=== PATIENT | female | born 2005 | race Caucasian/White ===

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

== ENCOUNTER 2023-05-28 18:06 | Emergency (ER) | payer BC, SELFPAY ==
--- NOTE | ~2023-05-28 | CT_ITS ---
EXAMINATION: CT abdomen pelvis w con INDICATION: Right upper quadrant pain TECHNIQUE: Computed tomographic images of the abdomen and pelvis were obtained after the administrati on of 100 cc of Omnipaque 350 intravenous contrast. The dose-length product (DLP) was 211.14 mGy-cm. Automated exposure control and iterative reconstruction technique were employed. COMPARISON: None available FINDINGS: The lung bases are clear. The heart size is normal. The liver, spleen, pancreas, gallbladde r, and adrenal glands are normal. The kidneys are unremarkable. No pathologically enlarged abdominal or pelvic lymph nodes are identified. No free intraperitoneal gas or evidence of bowel obstruction. IMPRESSION: 1. No CT correlate for the patient's symptoms. Reviewed, dictated and finalized at location [facility].
[2023-05-28 18:17] VITALS: BP 141/90; PULSE 75; RESP 18; TEMP 37.2; O2SAT 100
[2023-05-28 18:32] LABS: Basophils Percent Auto 0.3 % (0.2-1.2); Hematocrit 41.7 % (37.0-47.0); Immature Granulocyte Absolute 0.07 K/mm3 (0.00-0.031); Immature Granulocyte Percent A 0.6 % (0-0.5); Lymphocytes Absolute Auto 1.19 K/mm3 (0.9-3.2); Lymphocytes Percent Auto 9.9 % (18.3-44.2); Mean Corpuscular HGB Conc 33.6 g/dl (32-36); Mean Corpuscular Hemoglobin 30.2 pg (26-34); Mean Corpuscular Volume 90.1 fl (80-100); Mean Platelet Volume 9.1 fl (7.4-10.4); Monocytes Absolute Auto 0.8 K/mm3 (0.1-0.6); Monocytes Percent Auto 6.5 % (2.6-8.5); Neutrophils Absolute Auto 9.9 K/mm3 (1.3-6.7); Neutrophils Percent Auto 82.7 % (45.5-73.1); Platelet Count Result 287 k/mm3 (150-375); Red Blood Count 4.63 M/mm3 (4.2-5.4); Red Cell Distribution Width 12.4 % (11.5-14.5)
[2023-05-28 18:39] LABS: Add Urine Microscopic? YES; Appearance Urine Clear (Clear); Bacteria Urine None Seen /hpf; Bilirubin Urine Negative (Negative); Blood Urine Negative (Negative); Color Urine Yellow (Yellow); Glucose Urine UA Negative (Negative); Ketones Urine 3+ mg/dL (Negative); Leukocyte Esterase Ur Negative LEU/UL (Negative); Nitrate Urine Negative (Negative); Non Pathogenic Casts 0-2; Protein Urine 1+ mg/dL (Negative); RBC Urine 0-2 /hpf (0-2); Specific Grav Ur 1.035 (1.001-1.035); Squamous Epithelial Cell Urine Occasional /hpf (Few); WBC Urine 0-5 /hpf
[2023-05-28 18:42] LABS: Alanine Aminotransferase 24 U/L (6-35); Albumin Level 5.3 g/dL (3.7-5.6); Alkaline Phosphatase 35 U/L (45-116); Anion Gap 15 mmol/L (8-16); Aspartate Amino Transferase 31 U/L (14-36); Blood Urea Nitrogen 12 mg/dL (8-21); Calcium 9.9 mg/dL (8.9-10.7); Carbon Dioxide 22 mmol/L (22-30); Chloride 103 mmol/L (98-107); Estimated CRCL calculation 92 ml/min; Estimated Glomerular Filt Rate > 60; Glucose 108 mg/dL (65-110); Lipase 34 U/L (23-300); Potassium 3.9 mmol/L (3.4-5.0); Sodium 140 mmol/L (134-143)
--- NOTE | 2023-05-28 21:58 | ECG_ITS ---
Measurements Intervals [place] Rate: 83 P: 74 MN: 159 QRS: 91 QRSD: 84 T: 60 QT: 379 QTc: 447 Interpretive Statements SINUS RHYTHM WITH SINUS ARRHYTHMIA RIGHT AXIS DEVIATION BORDERLINE T WAVE ABNORMALITY- ANTERIOR LEADS BASELINE ARTIFACT- I, III, AVR, AVL, AVF, V1, V4-V6 BORDERLINE ECG NO PREVIOUS ECG AVAILABLE FOR COMPARISON Electronically Signed On 05-29-2023 8:10:23 CDT by Itz Hernandez D.O.
--- NOTE | 2023-05-28 22:00 | ED.NAVMDI ---
HPI - Nausea/Vomiting/Diarrhea General Chief complaint: Nausea/Vomiting/Diarrhea Stated complaint: vomiting X12 hours Time Seen by Provider: 05/28/23 21:40 History of Present Illness HPI Narrative: 17-year-old female with a history of anxiety, hypokalemia, ADHD reports for evaluation for nausea and vomiting x2 to 4 days. Patient reports having 12-15 episodes of vomiting since onset of symptoms. States she developed watery diarrhea yesterday and has had 2-3 episodes of diarrhea since. She is denying abdominal pain, dysuria, hematuria, concern for , concern for STDs or vaginal discharge. She is also reporting epigastrium and chest burning . She denies pleuritic pain, dyspnea, cough or congestion, fever, otalgia, sore throat, odynophagia, dysphagia, lower extremity edema or pain, melena or hematochezia. Denies recent surgeries or trauma, recent antibiotic use, hospitalizations, camping or travel. She does report having intermittent chills especially after vomiting. Related Data Home Medications Medication Instructions Recorded Confirmed etonogestrel 68 mg subdermal 1 implant subdermal ONCE 05/19/20 03/24/23 implant (Nexplanon) Allergies Allergy/AdvReac Type Severity Reaction Status Date / Time No Known Allergies Allergy Verified 05/28/23 18:17 Review of Systems Review of Systems: CONSTITUTIONAL: Denies fever, chills EYES: Denies visual changes, redness, or discharge. ENT: Denies rhinorrhea, congestion, sore throat, or otalgia. CARDIOVASCULAR: See HPI RESPIRATORY: Denies cough or dyspnea. GASTROINTESTINAL: See HPI GENITOURINARY: Denies dysuria or hematuria. SKIN: Denies rash or itching. MUSCULOSKELETAL: Denies back pain, joint pain, or myalgia. NEUROLOGIC: Denies headache, numbness, dizziness, or weakness. PSYCHIATRIC: Denies anxiety or depression. [facility] Social History Social History Smoking status: Never smoker Alcohol intake: never Lack of Transportation: No Lack of Food: Never True Current Housing: I Have Housing Concerned About Future Housing: No Difficulty Paying Gas/Electric Bills: No Difficulty Paying for Meds: No Currently Unemployed: No Education: High School Diploma/GED Difficulty w/ Childcare or Family Care: No Exam Narrative: GENERAL: Well-appearing, in no acute distress. Patient resting comfortably exam bed. She is pleasant and conversational. HEAD: Normocephalic EYES: PERRLA ENT: Nares clear. Mucous membranes moist. Oropharynx without tonsillar hypertrophy exudate or other lesions. NECK: Supple. CHEST: No respiratory distress. Clear to auscultation, no adventitious breath sounds. HEART: Regular rate and rhythm. No murmur heard. Normal peripheral pulses. ABDOMEN: Normal active bowel sounds. Abdomen is soft with mild tenderness in the right upper quadrant. No guarding, rebound or rigidity. No peritoneal signs. No CVA tenderness. EXTREMITIES: Normal range of motion. No edema. SKIN: Warm, dry, no rash. NEURO: No focal deficits. Alert and oriented x3. PSYCH: Normal mood and affect. Course Vital Signs Vital signs: Vital Signs Temperature 98.9 F 05/28/23 18:17 Pulse Rate 75 05/28/23 18:17 Respiratory Rate 18 05/28/23 18:17 Blood Pressure 141/90 H 05/28/23 18:17 Pulse Oximetry 100 05/28/23 18:17 Oxygen Delivery Room Air 05/28/23 18:17 Temperature 98.9 F 05/28/23 18:17 Pulse Rate 87 05/28/23 23:34 Respiratory Rate 15 05/28/23 23:34 Blood Pressure 104/71 05/28/23 23:34 Pulse Oximetry 100 05/28/23 23:34 Oxygen Delivery Room Air 05/28/23 18:17 MDM - Nausea/Vomiting/Diarrhea MDM Narrative Medical decision making narrative: 17-year-old female with a history of anxiety, hypokalemia, ADHD reports for evaluation for nausea and vomiting x2 to 4 days, with diarrhea developing yesterday and burning epigastrium and chest pain. Patient is well-appe
[2023-05-28] MEDS: SODIUM CHLORIDE 0.9% IV 1,000 ML 999 ML IV CONT ×2 (22:20→22:21)
[2023-05-28] MEDS: ONDANSETRON INJ 4 MG/2 ML VIAL IV PUSH (22:21)
[2023-05-28] MEDS: FAMOTIDINE 20 MG/2 ML VIAL IV PUSH (22:21)
[2023-05-28 22:43] LABS: Troponin I < 0.012 ng/mL (0.000-0.034)
[2023-05-28 22:48] LABS: Influenza A QL RT-PCR Negative (Negative); Influenza B QL RT-PCR Negative (Negative); SARS-CoV-2 RNA PCR Negative (Negative)
[2023-05-28 23:34] VITALS: BP 104/71; PULSE 87; RESP 15; O2SAT 100
[2023-05-29 00:21] VITALS: BP 103/71; PULSE 95; RESP 21; O2SAT 100
== END 2023-05-29 00:22 | disposition home or self-care (01) ==
PROVIDERS: Emergency Medicine; Emergency Provider Physician Assistant; PCP Family Medicine
DX: A08.4 Viral intestinal infection, unspecified (principal); E86.0 Dehydration; Z20.822 Contact with and (suspected) exposure to COVID-19; R94.31 Abnormal electrocardiogram [ECG] [EKG]
CPT/HCPCS: 36415; 74177; 80053; 81001; 81025; 83690; 84484; 85025; 87636; 93005; 96361; 96374; 96375; 99284; J2405; J7030; Q9967

== ENCOUNTER 2023-07-31 09:04 | Emergency (ER) | payer BC, SELFPAY ==
[2023-07-31 09:21] VITALS: BP 126/87; PULSE 101; RESP 20; TEMP 35.6; O2SAT 100
[2023-07-31 09:25] VITALS: BP 126/87; PULSE 101; RESP 20; TEMP 35.6; O2SAT 100
--- NOTE | 2023-07-31 10:08 | ED.URI ---
HPI - URI/Sore Throat General Chief Complaint: Nausea/Vomiting/Diarrhea Stated Complaint: Nausea;Sore throat Time Seen by Provider: 07/31/23 10:08 Source: patient, RN notes reviewed and old records reviewed Mode of arrival: ambulatory Limitations: no limitations History of Present Illness HPI Narrative: 18-year-old female with a history of anxiety presents to the [facility] with complaints of abdominal pain, nausea, vomiting, diarrhea. As well as burning in her throat and chest. Multiple episodes of diarrhea and vomiting. Has been taking Zofran and promethazine with no relief. Tried taking to Pepcid switch she reports made her symptoms worse. States she has not been able to keep any fluids down since yesterday Patient states she is unable to keep take her medications for her anxiety due to the vomiting and diarrhea and abdominal pain Onset (ago): day(s) (1) Treatments prior to arrival: other (Pepcid, Zofran, promethazine) Related Data Home Medications Medication Instructions Recorded Confirmed etonogestrel 68 mg subdermal 1 implant subdermal ONCE 05/19/20 07/31/23 implant (Nexplanon) Allergies Allergy/AdvReac Type Severity Reaction Status Date / Time No Known Allergies Allergy Verified 07/31/23 09:24 Review of Systems Review of Systems: All systems reviewed & are unremarkable except as noted in HPI and below Constitutional: Constitutional: Reports as per HPI, Reports fatigue, Reports lethargy and Reports poor appetite Eyes: Eyes: Reports no additional eye complaints ENT: Reports system reviewed and no additional complaints, except as documented Cardiovascular: Cardiovascular: Reports no additional cardiovascular complaints, Denies chest pain and Denies dyspnea Respiratory: Respiratory: Reports no additional respiratory complaints, Denies chest congestion, Denies cough and Denies dyspnea Gastrointestinal: Gastrointestinal: Reports as per HPI, Reports abdominal pain, Reports heartburn, Reports diarrhea, Reports nausea and Reports vomiting Musculoskeletal: Musculoskeletal: Reports no additional musculoskeletal complaints Integumentary/Breasts: Skin/Breast: Reports system reviewed and no additional complaints, except as docu Neurologic: Reports system reviewed and no additional complaints, except as documented Psychiatric: Psychiatric: Reports no additional psychiatric complaints Allergic/Immunologic: Allergic/Immunologic: Reports no additional allergic/immunologic complaints PMFSH Past Medical History Medical History ADHD Anxiety Social History Social History Smoking status: Never smoker Alcohol intake: never Substance use: never Substance use type: does not use Lack of Transportation: No Lack of Food: Never True Current Housing: I Have Housing Concerned About Future Housing: No Difficulty Paying Gas/Electric Bills: No Difficulty Paying for Meds: No Currently Unemployed: No Education: High School Diploma/GED Difficulty w/ Childcare or Family Care: No Comments At the time of my signature, I reviewed and agree with the nursing past medical, surgical, social, and family history. There is no relevant family history pertinent to the patient complaint. Exam Const: General: cooperative, healthy appearing, no acute distress, well developed, alert, anxious, poor hygiene, tired appearing, uncomfortable and well nourished Nutritional Appearance: well nourished Orientation/consciousness: patient oriented x3 Limitations: no limitations HENMT: Head: normal to inspection Ears: hearing grossly normal bilaterally, external ears normal, TM's normal bilaterally, EAC's normal, mastoids normal and no periauricular adenopathy Face/Nose/Sinus: Normal external nose present, Normal nares present, Normal nasal mucous membranes and turbinates present, normal facial exam and face symm
== END 2023-07-31 10:24 | disposition short-term general hospital (02) ==
LOC: EXPGOSH 09:07
PROVIDERS: Emergency Provider Nurse Practitioner; PCP Family Medicine
DX: R11.2 Nausea with vomiting, unspecified (principal); R19.7 Diarrhea, unspecified; R10.11 Right upper quadrant pain; R10.13 Epigastric pain; R10.32 Left lower quadrant pain; R10.30 Lower abdominal pain, unspecified; F90.9 Attention-deficit hyperactivity disorder, unspecified type; F41.9 Anxiety disorder, unspecified
CPT/HCPCS: 99212; G0463

== ENCOUNTER 2023-07-31 10:52 | Emergency (ER) | payer BC, SELFPAY ==
[2023-07-31 11:04] VITALS: BP 122/107; PULSE 80; RESP 17; TEMP 36.6; O2SAT 100
[2023-07-31 11:47] LABS: Basophils Percent Auto 0.3 % (0.2-1.2); Eosinophils Percent Auto 0.1 % (0-4.4); Hematocrit 40.7 % (37.0-47.0); Hemoglobin 14.2 g/dL (12.0-15.0); Immature Granulocyte Absolute 0.06 K/mm3 (0.00-0.031); Immature Granulocyte Percent A 0.5 % (0-0.5); Lymphocytes Absolute Auto 1.49 K/mm3 (0.9-3.2); Lymphocytes Percent Auto 11.8 % (18.3-44.2); Mean Corpuscular HGB Conc 34.9 g/dl (32-36); Mean Corpuscular Hemoglobin 30.5 pg (26-34); Mean Corpuscular Volume 87.3 fl (80-100); Mean Platelet Volume 9.4 fl (7.4-10.4); Monocytes Absolute Auto 0.8 K/mm3 (0.1-0.6); Monocytes Percent Auto 6.5 % (2.6-8.5); Neutrophils Absolute Auto 10.2 K/mm3 (1.3-6.7); Neutrophils Percent Auto 80.8 % (45.5-73.1); Platelet Count Result 323 k/mm3 (150-375); Red Blood Count 4.66 M/mm3 (4.2-5.4); Red Cell Distribution Width 12.4 % (11.5-14.5); White Blood Count 12.6 K/mm3 (4.5-10.0)
[2023-07-31 11:50] LABS: Appearance Urine Clear (Clear); Bilirubin Urine Negative (Negative); Blood Urine Negative (Negative); Color Urine Yellow (Yellow); Glucose Urine UA Negative (Negative); Ketones Urine 1+ mg/dL (Negative); Leukocyte Esterase Ur Negative LEU/UL (Negative); Nitrate Urine Negative (Negative); Protein Urine Negative (Negative); Specific Grav Ur 1.008 (1.001-1.035); Urobilinogen Urine 0.2 mg/dL (<2.0); pH Urine 6.5 (5.0-9.0)
[2023-07-31 11:58] LABS: Alanine Aminotransferase 25 U/L (6-35); Albumin Level 5.4 g/dL (3.5-5.1); Alkaline Phosphatase 40 U/L (38-126); Anion Gap 15 mmol/L (8-16); Aspartate Amino Transferase 39 U/L (14-36); Blood Urea Nitrogen 12 mg/dL (7-17); Calcium 9.9 mg/dL (8.4-10.2); Carbon Dioxide 27 mmol/L (22-30); Chloride 96 mmol/L (98-107); Estimated CRCL calculation 91 ml/min; Estimated Glomerular Filt Rate > 60; Glucose 114 mg/dL (65-110); Lipase 31 U/L (23-300); Sodium 138 mmol/L (137-145)
[2023-07-31 12:00] LABS: Add Urine Microscopic? NO
[2023-07-31] MEDS: ONDANSETRON INJ 4 MG/2 ML VIAL IV PUSH (13:04)
[2023-07-31] MEDS: BELLADONNA ALK/PHENOB ELIX 10 ML, MAG HYDROX/ALUMINUM HYD/SIMETH 30 ML, LIDOCAINE HCL 2... PO (13:05)
--- NOTE | 2023-07-31 13:16 | ED.ABDPAIN ---
HPI - Abdominal Pain General Chief Complaint: Abdominal Pain Stated Complaint: abd pain/n/v/d Time Seen by Provider: 07/31/23 13:01 History of Present Illness HPI narrative: Patient is a 18-year-old female who presents to the ER with nausea and vomiting. Ongoing since yesterday. She has sensation of acid reflux going up into the back of her throat. No abdominal pain outside of the reflux she is having. She has been using a hot pad to help her discomfort. No fevers or chills or sweats. No known sick contacts. Denies sinus congestion or productive cough. She is found no alleviating factors at home. Related Data Home Medications Medication Instructions Recorded Confirmed etonogestrel 68 mg subdermal 1 implant subdermal ONCE 05/19/20 07/31/23 implant (Nexplanon) Allergies Allergy/AdvReac Type Severity Reaction Status Date / Time No Known Allergies Allergy Verified 07/31/23 09:24 Review of Systems Review of Systems: All systems reviewed & are unremarkable except as noted in HPI and below Constitutional: Constitutional: Denies chills, Denies fatigue and Denies fever(s) ENT: Denies nasal congestion and Denies sore throat Cardiovascular: Cardiovascular: Denies chest pain, Denies rapid heart rate and Denies radiating jaw, neck or arm pain Gastrointestinal: Gastrointestinal: Denies abdominal pain, Reports heartburn, Reports nausea and Reports vomiting PMFSH Past Medical History Medical History (Updated 07/31/23 @ 15:53 by Сергей Xie MD) ADHD Anxiety Surgical History Surgical History (Updated 07/31/23 @ 13:17 by Сергей Xie MD) No pertinent past surgical history Social History Social History Smoking status: Never smoker Alcohol intake: never Substance use: never Substance use type: does not use Lack of Transportation: No Lack of Food: Never True Current Housing: I Have Housing Concerned About Future Housing: No Difficulty Paying Gas/Electric Bills: No Difficulty Paying for Meds: No Currently Unemployed: No Education: High School Diploma/GED Difficulty w/ Childcare or Family Care: No Exam Narrative: GENERAL: Well-appearing, well-nourished, and in no acute distress. HEAD: Normocephalic, atraumatic. ENT: Mucous membranes moist. Pharyngitis noted without tonsillar hypertrophy or exudate. NECK: Supple. CHEST: Clear to auscultation. No respiratory distress. HEART: Regular rate and rhythm. Normal peripheral pulses. ABDOMEN: Soft, nontender, nondistended. EXTREMITIES: Normal range of motion. No edema. SKIN: Warm, dry, no rash. NEURO: Alert and oriented x3. PSYCH: Normal mood and affect. Course Course Emergency Course: Patient resting comfortably. Informed of results. Tolerating oral fluids but also getting IV fluids. Patient appropriate for discharge home will be started on reflux medication as well as antiemetics. Vital Signs Vital signs: Vital Signs Temperature 97.9 F 07/31/23 11:04 Pulse Rate 80 07/31/23 11:04 Respiratory Rate 17 07/31/23 11:04 Blood Pressure 122/107 H 07/31/23 11:04 Pulse Oximetry 100 07/31/23 11:04 Oxygen Delivery Room Air 07/31/23 11:04 Temperature 99.7 F H 07/31/23 15:09 Pulse Rate 66 07/31/23 15:09 Respiratory Rate 18 07/31/23 15:09 Blood Pressure 116/72 07/31/23 15:09 Pulse Oximetry 100 07/31/23 15:09 Oxygen Delivery Room Air 07/31/23 11:04 MDM - Abdominal Pain Lab Data 07/31/23 11:24 07/31/23 11:24 Labs: Lab Results 07/31/23 07/31/23 Range/Units 11:23 11:24 WBC 12.6 H (4.5-10.0) K/mm3 RBC 4.66 (4.2-5.4) M/mm3 Hgb 14.2 (12.0-15.0) g/dL Hct 40.7 (37.0-47.0) % MCV 87.3 (80-100) fl MCH 30.5 (26-34) pg MCHC 34.9 (32-36) g/dl RDW 12.4 (11.5-14.5) % Plt Count 323 (150-375) k/mm3 MPV 9.4 (7.4-10.4) fl Immature Gran % (Auto) 0.5 (0-0
[2023-07-31 15:09] VITALS: BP 116/72; PULSE 66; RESP 18; TEMP 37.6; O2SAT 100
[2023-07-31] MEDS: SODIUM CHLORIDE 0.9% IV 1,000 ML 999 ML IV CONT (16:19)
== END 2023-07-31 17:42 | disposition home or self-care (01) ==
PROVIDERS: Emergency Provider Emergency Medicine; PCP Family Medicine
DX: K20.90 Esophagitis, unspecified without bleeding (principal); R11.2 Nausea with vomiting, unspecified; F90.9 Attention-deficit hyperactivity disorder, unspecified type; F41.9 Anxiety disorder, unspecified
CPT/HCPCS: 36415; 80053; 81003; 81025; 83690; 85025; 96361; 96374; 99284; A9270; J2405; J7030

== ENCOUNTER 2023-08-02 14:21 | Outpatient (CLI) | payer BC, SELFPAY ==
[2023-08-02 20:02] LABS: Anion Gap 10 mmol/L (8-16); Blood Urea Nitrogen 11 mg/dL (7-17); Calcium 9.2 mg/dL (8.4-10.2); Carbon Dioxide 29 mmol/L (22-30); Chloride 101 mmol/L (98-107); Estimated Glomerular Filt Rate > 60; Glucose 84 mg/dL (65-110); Potassium 3.4 mmol/L (3.4-5.0); Sodium 140 mmol/L (137-145)
[2023-08-06 18:02] LABS: Immunoglobulin A 219 mg/dL (47-310); TTG IGA AB <1.0 U/mL (<15.0)
== END 2023-08-02 14:22 | disposition home or self-care (01) ==
LOC: ANHGOSHLAB 14:23
PROVIDERS: PCP Family Medicine; Visit Provider Family Medicine
DX: K59.09 Other constipation (principal)
CPT/HCPCS: 36415; 80048; 82784; 84443; 86364

== ENCOUNTER → 2023-08-02 14:45 | Outpatient (CLI) | payer BC, SELFPAY ==
--- NOTE | ~2023-08-02 | XR_ITS ---
EXAMINATION: XR abdomen/kub 1V DATE: 08/02/2023 15:07 INDICATION: Constipation. TECHNIQUE: A supine view of the abdomen on 2 radiographs was obtained. COMPARISON: CT abdomen and pelvis 05/28/2023 FINDINGS: There are no dilated loops of bowel. There is a small volume of stool in the colon. IMPRESSION: 1. Normal bowel gas pattern. Reviewed, dictated and finalized at location [facility]. [facility]
== END ==
PROVIDERS: PCP Family Medicine; Visit Provider Family Medicine
DX: K59.00 Constipation, unspecified (principal)
CPT/HCPCS: 74018

== ENCOUNTER 2023-08-10 00:51 | Day surgery (SDC) | payer BC, SELFPAY ==
[2023-08-03 15:28] VITALS: BMI 23.4
--- NOTE | 2023-08-09 17:33 | PM.HPGS ---
History of Present Illness History of Present Illness Consent: Risks, benefits, and alternatives have been discussed and questions answered. Patient agrees to proceed with procedure. Chief complaint: constipation Narrative: Marco Orona is a 18 year old female With a change in bowel habits. She is complaining of severe abdominal pain nausea vomiting diarrhea.? Continues to have abdominal pain and that has not been able to have a bowel movement. CT scan had showed some mild diffuse thickening of the colon. Review of Systems Review of Systems: All systems reviewed & are unremarkable except as noted in HPI and below PMFSH Past Medical History Medical History ADHD Anxiety Surgical History Surgical History No pertinent past surgical history Social History Social History Smoking status: Current every day smoker Alcohol intake: never Substance use: current Substance use type: marijuana Other substance usage details: Smokes marijuana Last use: 08/03/23 Lack of Transportation: No Lack of Food: Never True Current Housing: I Have Housing Concerned About Future Housing: No Difficulty Paying Gas/Electric Bills: No Difficulty Paying for Meds: No Currently Unemployed: No Education: High School Diploma/GED Difficulty w/ Childcare or Family Care: No Living arrangements: with family Meds Home Medications and Allergies Home Medications Medication Instructions Recorded Confirmed Type etonogestrel 68 mg subdermal 1 implant subdermal ONCE 05/19/20 08/10/23 History implant (Nexplanon) bupropion HCl 150 mg 24 hr tablet, 150 mg PO QAM #90 tabs 03/03/23 08/10/23 Rx extended release escitalopram oxalate 10 mg tablet 10 mg PO DAILY #90 tabs 04/28/23 08/10/23 Rx (Lexapro) ondansetron HCl 4 mg tablet 4 mg PO Q6H PRN nausea and 05/26/23 08/10/23 Rx vomiting #20 tabs famotidine 40 mg tablet 40 mg PO DAILY #90 tabs 06/15/23 08/10/23 Rx promethazine 12.5 mg tablet 12.5 mg PO Q6H PRN nausea and 06/26/23 08/10/23 Rx vomiting #30 tabs guanfacine 2 mg tablet,extended 2 mg PO DAILY #30 tabs 07/07/23 08/10/23 Rx release 24 hr buspirone 15 mg tablet 15 mg PO BID #60 tabs 07/25/23 08/10/23 Rx pantoprazole 40 mg tablet,delayed 40 mg PO HS #14 tabs 07/31/23 08/10/23 Rx release ondansetron 4 mg disintegrating 4 mg PO Q6H PRN nausea and 08/04/23 08/10/23 Rx tablet vomiting #30 tabs ondansetron 4 mg disintegrating 4 mg PO Q8H #14 tabs 08/04/23 08/10/23 Rx tablet Allergies Allergy/AdvReac Type Severity Reaction Status Date / Time No Known Allergies Allergy Verified 08/10/23 12:22 Exam Const: General: alert Orientation/consciousness: patient oriented x3 Resp: Auscultation: clear to auscultation bilaterally Cardio: Rhythm: regular rhythm GI: GI Palp: Yes Soft to palpation and No Tenderness to palpation present (GI) Neuro: General: patient oriented x3 Assessment and Plan Assessment and plan (1) Chronic constipation with overflow incontinence: Code(s): K59.09 - Other constipation Status: Acute Assessment and Plan: Colonoscopy with possible biopsy or polypectomy or cautery or injection of substances.
[2023-08-10 12:10] VITALS: BP 116/88; PULSE 105; RESP 18; TEMP 36.4; O2SAT 95; BMI 22.6
[2023-08-10] MEDS: LACTATED RINGERS 1,000 ML 150 ML IV CONT (12:40)
--- NOTE | 2023-08-10 13:01 | WPDANESEPPF ---
Anes - Initial Pre Proc Eval Procedure: Operation Date: 08/10/23 13:30 Proposed Procedures p Colonoscopy - Lasha Barker MD Date/Time: 08/10/23 13:01 Surgeon: Lasha Barker MD Pre Op Diagnosis: constipation Patient Data Age: 18 Gender: F Height: 1.52 m Weight: 52.6 kg Last Vital Signs Temp 97.6 F 08/10/23 12:10 Pulse 105 H 08/10/23 12:10 Resp 18 08/10/23 12:10 BP 116/88 08/10/23 12:10 Pulse Ox 95 08/10/23 12:10 O2 Del Method Room Air 08/10/23 12:10 Allergies Allergy/AdvReac Type Severity Reaction Status Date / Time No Known Allergies Allergy Verified 08/10/23 12:22 Home Medications Medication Instructions Recorded Confirmed Type etonogestrel 68 mg subdermal 1 implant subdermal ONCE 05/19/20 08/10/23 History implant (Nexplanon) bupropion HCl 150 mg 24 hr tablet, 150 mg PO QAM #90 tabs 03/03/23 08/10/23 Rx extended release escitalopram oxalate 10 mg tablet 10 mg PO DAILY #90 tabs 04/28/23 08/10/23 Rx (Lexapro) ondansetron HCl 4 mg tablet 4 mg PO Q6H PRN nausea and 05/26/23 08/10/23 Rx vomiting #20 tabs famotidine 40 mg tablet 40 mg PO DAILY #90 tabs 06/15/23 08/10/23 Rx promethazine 12.5 mg tablet 12.5 mg PO Q6H PRN nausea and 06/26/23 08/10/23 Rx vomiting #30 tabs guanfacine 2 mg tablet,extended 2 mg PO DAILY #30 tabs 07/07/23 08/10/23 Rx release 24 hr buspirone 15 mg tablet 15 mg PO BID #60 tabs 07/25/23 08/10/23 Rx pantoprazole 40 mg tablet,delayed 40 mg PO HS #14 tabs 07/31/23 08/10/23 Rx release ondansetron 4 mg disintegrating 4 mg PO Q6H PRN nausea and 08/04/23 08/10/23 Rx tablet vomiting #30 tabs ondansetron 4 mg disintegrating 4 mg PO Q8H #14 tabs 08/04/23 08/10/23 Rx tablet Patient hx anesthesia problems: none Family hx anesthesia problems: none Results Review: All pre-operative results and documents have been reviewed as part of the pre-operative evaluation. PMFSH Past Medical History Medical History ADHD Anxiety Surgical History Surgical History No pertinent past surgical history Social History Social History Smoking status: Current every day smoker Alcohol intake: never Substance use: current Substance use type: marijuana Other substance usage details: Smokes marijuana Last use: 08/03/23 Lack of Transportation: No Lack of Food: Never True Current Housing: I Have Housing Concerned About Future Housing: No Difficulty Paying Gas/Electric Bills: No Difficulty Paying for Meds: No Currently Unemployed: No Education: High School Diploma/GED Difficulty w/ Childcare or Family Care: No Living arrangements: with family Antonino - David Final PreProcedure Day of Procedure 08/10/23 13:01 Patient weight: normal Heart: regular rate and rhythm Lungs: clear to auscultation Airway: Mallampati scale class II Neurological: alert and oriented Last oral intake: >/= 8 hours ASA classification: II Emergent: no Anesthetic plan: proceed Anesthesia type and monitoring: general GIVS and standard monitoring Results Review: All pre-operative results and documents have been reviewed as part of the pre-operative evaluation. Informed Consent: The patient's anesthetic plan and its attendant risks and benefits were discussed with the patient/family/POA. Questions were solicited and answers provided to the satisfaction of the patient/family/POA.
[2023-08-10 13:26] VITALS: BP 92/57; PULSE 92; RESP 20; O2SAT 96
[2023-08-10 13:36] VITALS: BP 102/65; PULSE 84; RESP 20; O2SAT 97
[2023-08-10 13:46] VITALS: BP 116/82; PULSE 68; RESP 18; O2SAT 100
== END 2023-08-10 14:04 | disposition home or self-care (01) ==
PROVIDERS: PCP Family Medicine; Visit Provider Internal Medicine Gastroenterology
PROC: 0DJD8ZZ Inspection of Lower Intestinal Tract, Via Natural or Artificial Opening Endoscopic (ICD-10-PCS; CPT 45378; principal; 2023-08-10 13:30)
DX: K59.09 Other constipation (principal); F90.9 Attention-deficit hyperactivity disorder, unspecified type; F41.9 Anxiety disorder, unspecified; F12.90 Cannabis use, unspecified, uncomplicated
CPT/HCPCS: 45378; J2704; J7120

== ENCOUNTER 2023-08-29 09:20 | Emergency (ER) | payer BC, SELFPAY ==
--- NOTE | ~2023-08-29 | XR_ITS ---
EXAMINATION: XR abdomen/kub 1V DATE: 08/29/2023 13:10 INDICATION: Abdominal pain, nausea and vomiting TECHNIQUE: A supine view of the abdomen was obtained. COMPARISON: None. FINDINGS: Gas in the nondistended stomach with additional small amount of scattered colonic gas. No dilated gas -filled loops of small bowel to suggest obstruction. No evident organomegaly or suspicious calcificat ions in the abdomen or pelvis. Psoas shadows are normal. Lung bases are clear with no pleural effusio n. Heart size is normal. 4 degree lumbar levocurvature. IMPRESSION: 1. Normal bowel gas pattern. Reviewed, dictated and finalized at location A. T [employer] TE[employer]
[2023-08-29 09:29] VITALS: BP 128/83; PULSE 95; RESP 20; TEMP 36.4; O2SAT 95
[2023-08-29 11:29] LABS: Basophils Absolute Auto 0.1 K/mm3 (0.0-0.1); Basophils Percent Auto 0.6 % (0.2-1.2); Eosinophils Percent Auto 0.1 % (0-4.4); Hematocrit 40.2 % (37.0-47.0); Hemoglobin 13.9 g/dL (12.0-15.0); Immature Granulocyte Absolute 0.02 K/mm3 (0.00-0.031); Immature Granulocyte Percent A 0.2 % (0-0.5); Lymphocytes Absolute Auto 0.68 K/mm3 (0.9-3.2); Lymphocytes Percent Auto 8.4 % (18.3-44.2); Mean Corpuscular HGB Conc 34.6 g/dl (32-36); Mean Corpuscular Hemoglobin 30.5 pg (26-34); Mean Corpuscular Volume 88.2 fl (80-100); Mean Platelet Volume 9.2 fl (7.4-10.4); Monocytes Absolute Auto 0.2 K/mm3 (0.1-0.6); Neutrophils Absolute Auto 7.1 K/mm3 (1.3-6.7); Neutrophils Percent Auto 87.7 % (45.5-73.1); Platelet Count Result 296 k/mm3 (150-375); Red Blood Count 4.56 M/mm3 (4.2-5.4); Red Cell Distribution Width 12.2 % (11.5-14.5); White Blood Count 8.1 K/mm3 (4.5-10.0)
[2023-08-29 11:38] LABS: Alanine Aminotransferase 15 U/L (6-35); Albumin Level 5.1 g/dL (3.5-5.1); Alkaline Phosphatase 36 U/L (38-126); Anion Gap 14 mmol/L (8-16); Aspartate Amino Transferase 25 U/L (14-36); Blood Urea Nitrogen 9 mg/dL (7-17); Calcium 9.7 mg/dL (8.4-10.2); Carbon Dioxide 21 mmol/L (22-30); Chloride 106 mmol/L (98-107); Estimated CRCL calculation 79 ml/min; Estimated Glomerular Filt Rate > 60; Glucose 127 mg/dL (65-110); Lipase 33 U/L (23-300); Potassium 4.1 mmol/L (3.4-5.0); Sodium 141 mmol/L (137-145)
--- NOTE | 2023-08-29 12:03 | ED.NAVMDI ---
HPI - Nausea/Vomiting/Diarrhea General Chief complaint: Nausea/Vomiting/Diarrhea Stated complaint: N/V X5 DAYS Time Seen by Provider: 08/29/23 11:59 Source: patient and family (grandmother) Limitations: no limitations History of Present Illness HPI Narrative: Patient is a 18 yo female who presents with nausea and vomiting of several weeks duration, worsened over the past few days. She reports she did have some blood on the toilet paper in the past 24 hours but otherwise denies this previously. Had a colonoscopy performed with Dr Tuttle/Mehrdad recently. She notes she still feels constipated and is concerned for obstruction. Has been using laxatives. No prior EGD. Initially denies abdominal pain but then states she has it at the epigastrium, cramping. SHe is pacing around the room at the time of exam. Uses marijuana nearly daily for symptoms. She is scheduled to undergo an upper GI barium study in 1 week. Related Data Home Medications Medication Instructions Recorded Confirmed etonogestrel 68 mg subdermal 1 implant subdermal ONCE 05/19/20 08/21/23 implant (Nexplanon) Allergies Allergy/AdvReac Type Severity Reaction Status Date / Time No Known Allergies Allergy Verified 08/28/23 16:05 [facility] Past Medical History Medical History (Updated 08/30/23 @ 00:00 by Kye Colunga) ADHD Anxiety Aphthous ulcer of mouth Attention-deficit hyperactivity disorder, combined type Chronic pain of left knee Surgical History Surgical History (Updated 09/01/23 @ 14:44 by Chanel Denton MD) History of colonoscopy No pertinent past surgical history Social History Social History (Updated 09/01/23 @ 14:45 by Chanel Denton MD) Smoking status: Current every day smoker Alcohol intake: never Substance use: current Substance use type: marijuana Other substance usage details: Smokes marijuana Last use: 08/28/23 Lack of Transportation: No Lack of Food: Never True Current Housing: I Have Housing Concerned About Future Housing: No Difficulty Paying Gas/Electric Bills: No Difficulty Paying for Meds: No Currently Unemployed: No Education: High School Diploma/GED Difficulty w/ Childcare or Family Care: No Living arrangements: with family Exam Narrative: GENERAL: Well-appearing, well-nourished, in mild acute distress, pacing the room. HEAD: Normocephalic, atraumatic. EYES: Non injected, non icteric ENT: Nares clear, no rhinorrhea or epistaxis. NECK: Supple. CHEST: Clear to auscultation. No respiratory distress. HEART: Regular rate and rhythm. . ABDOMEN: Soft, nondistended. No tenderness to deep palpation. No palpable masses or evidence of significant stool burden. Digital rectal exam performed with grandmother present in room. External hemorrhoid appreciated, not thrombosed. Normal sphincter tone, no masses felt within rectal vault. Brown stool on gloved finger. No jose blood. FOBT negative EXTREMITIES: Normal range of motion. No edema. SKIN: Warm, dry, no rash. NEURO: No focal deficits. Alert and oriented x3. Ambulates with steady gait. No abnormal movements appreciated. PSYCH: Normal mood and affect. Course Vital Signs Vital signs: Vital Signs Temperature 97.6 F 08/29/23 09:29 Pulse Rate 95 08/29/23 09:29 Respiratory Rate 20 08/29/23 09:29 Blood Pressure 128/83 08/29/23 09:29 Pulse Oximetry 95 08/29/23 09:29 Oxygen Delivery Room Air 08/29/23 09:29 Temperature 97.6 F 08/29/23 09:29 Pulse Rate 95 08/29/23 09:29 Respiratory Rate 20 08/29/23 09:29 Blood Pressure 116/70 08/29/23 13:50 Pulse Oximetry 95 08/29/23 09:29 Oxygen Delivery Room Air 08/29/23 09:29 MDM - Nausea/Vomiting/Diarrhea MDM Narrative Medical decision making narrative: Patient presents with vague abdominal pain and nausea/vomiting. Family is concerned about constipation versus bowel obstruction. I suspect this might represent cannabinoid hyperemesis syndrom
[2023-08-29] MEDS: HALOPERIDOL LACTATE 5 MG/ML VIAL 2.5 MG IV PUSH (12:30)
[2023-08-29] MEDS: diphenhydrAMINE HCl INJ 50 MG/ML VIAL 25 MG IV PUSH (12:31)
[2023-08-29 13:50] VITALS: BP 116/70
[2023-08-29 14:19] LABS: Appearance Urine Cloudy (Clear); Bacteria Urine 1+ /hpf; Bilirubin Urine 1+ (Negative); Blood Urine Negative (Negative); Color Urine Dark Yellow (Yellow); Glucose Urine UA Negative (Negative); Ketones Urine 4+ mg/dL (Negative); Leukocyte Esterase Ur 1+ LEU/UL (Negative); Need Manual Microscopic Reviewed; Nitrate Urine Negative (Negative); Protein Urine 2+ mg/dL (Negative); Squamous Epithelial Cell Urine Many /hpf (Few); pH Urine 7.5 (5.0-9.0)
[2023-08-29 14:20] LABS: Specific Grav Ur 1.039 (1.001-1.035)
[2023-08-29 14:21] LABS: Add Urine Microscopic? YES
== END 2023-08-29 13:51 | disposition home or self-care (01) ==
PROVIDERS: Emergency Medicine; Emergency Provider Student in an Organized Health Care Education/Training Program; PCP Family Medicine
DX: R11.2 Nausea with vomiting, unspecified (principal); F17.210 Nicotine dependence, cigarettes, uncomplicated; F90.9 Attention-deficit hyperactivity disorder, unspecified type; F41.9 Anxiety disorder, unspecified
CPT/HCPCS: 36415; 74018; 80053; 81001; 83690; 85025; 87086; 87088; 96374; 96375; 99284; J1200; J1630

== ENCOUNTER 2023-09-06 08:29 | Outpatient (CLI) | payer BC, SELFPAY ==
--- NOTE | ~2023-09-06 | XR_ITS ---
EXAMINATION: XR UGIAC w small bowel DATE: 09/06/2023 10:29 INDICATION: Constipation and nausea. TECHNIQUE: The patient drank thick barium, gas-producing crystals, and thin barium. Fluoroscopy of th e esophagus, stomach, and small bowel was performed. Fluoroscopy exposure time was 1.5 minutes. Radio graphs of the abdomen were obtained. The total number of images was 303. COMPARISON: CT abdomen and pelvis 05/28/2023 FINDINGS: UPPER GASTROINTESTINAL SERIES: There is no mass or stricture of the esophagus. Esophageal motility is normal. There is no hiatal her tr. There was no gastroesophageal reflux with provocative maneuvers. The stomach shows a normal fold ing pattern. SMALL BOWEL SERIES: The small bowel shows a normal folding pattern. Specifically, the terminal ileum is normal. Transit t alejo to the colon was 1 hour. IMPRESSION: 1. Normal upper gastrointestinal series. 2. Normal small bowel series. Reviewed, dictated and finalized at location A. D CASHIER
== END 2023-09-06 08:30 | disposition home or self-care (01) ==
PROVIDERS: PCP Family Medicine; Visit Provider Family Medicine
DX: K59.00 Constipation, unspecified (principal); R11.0 Nausea
CPT/HCPCS: 74246; 74248

== ENCOUNTER 2024-08-06 09:47 | Emergency (ER) | payer BC, SELFPAY ==
--- NOTE | ~2024-08-06 | CT_ITS ---
EXAMINATION: CT abdomen pelvis w con DATE: 08/06/2024 11:43 INDICATION: Abdominal pain. Diarrhea. TECHNIQUE: Computed tomography (CT) of the abdomen and pelvis was performed with 100 mL Omnipaque 350 intravenous contrast. Automated exposure control and iterative reconstruction technique were employe d. The dose-length product was 186.77 mGy-cm. COMPARISON: CT abdomen and pelvis 05/28/2023 FINDINGS: The visualized portions of the lung bases are clear without pneumonia or pleural effusion. The heart size is normal. No pericardial effusion. The liver, gallbladder, spleen, pancreas, adrenal glands, and kidneys are normal. There are no dilated loops of bowel. The appendix is normal. There ar e no pathologically enlarged lymph nodes. There is no free intraperitoneal fluid. There is mild lumba r spondylosis. IMPRESSION: 1. No etiology for the patient's symptoms. Reviewed, dictated and finalized at location A. NTION DEPUTY
[2024-08-06 09:53] VITALS: BP 116/85; PULSE 80; RESP 16; TEMP 36.4; O2SAT 100
--- NOTE | 2024-08-06 10:29 | ED.NAVMDI ---
HPI - Nausea/Vomiting/Diarrhea General Chief complaint: Nausea/Vomiting/Diarrhea Stated complaint: vomiting Time Seen by Provider: 08/06/24 10:04 Source: patient Mode of arrival: ambulatory Limitations: no limitations History of Present Illness HPI Narrative: This is a 19-year-old female that presents to the emergency department for nausea and vomiting. Ongoing over the last several days. Reports this is an ongoing issue for her. She has seen GI for this in the past. She takes Zofran as needed and pantoprazole daily. Also reports diarrhea. Denies fevers, abdominal pain. Related Data Home Medications Medication Instructions Recorded Confirmed etonogestrel 68 mg subdermal 1 implant subdermal ONCE 05/19/20 09/05/23 implant (Nexplanon) Allergies Allergy/AdvReac Type Severity Reaction Status Date / Time No Known Allergies Allergy Verified 09/05/23 15:30 Review of Systems Review of Systems: CONSTITUTIONAL: Denies fever GASTROINTESTINAL: Reports nausea, vomiting and diarrhea. Denies abdominal pain GENITOURINARY: Denies dysuria or hematuria. All systems reviewed & are unremarkable except as noted in HPI and below PMFSH Past Medical History Medical History ADHD Anxiety Aphthous ulcer of mouth Attention-deficit hyperactivity disorder, combined type Chronic pain of left knee Surgical History Surgical History History of colonoscopy No pertinent past surgical history Social History Social History Smoking status: Current every day smoker Alcohol intake: never Substance use: current Substance use type: marijuana Other substance usage details: Smokes marijuana Last use: 08/28/23 Lack of Transportation: No Lack of Food: Never True Current Housing: I Have Housing Concerned About Future Housing: No Difficulty Paying Gas/Electric Bills: No Difficulty Paying for Meds: No Currently Unemployed: No Education: High School Diploma/GED Difficulty w/ Childcare or Family Care: No Living arrangements: with family Exam Narrative: GENERAL: Well-appearing, well-nourished, and in no acute distress. HEAD: Normocephalic, atraumatic. EYES: EOMI. CHEST: Clear to auscultation. No respiratory distress. No wheezes rales or rhonchi HEART: Regular rate and rhythm. No murmur heard. Normal peripheral pulses. ABDOMEN: Soft, nontender, nondistended, normal active bowel sounds. EXTREMITIES: Normal range of motion. No edema. SKIN: Warm, dry, no rash. NEURO: No focal deficits. Alert and oriented x3. PSYCH: Normal mood and affect Course Course Emergency Course: patient updated on her workup. Resting comfortably. Vital Signs Vital signs: Vital Signs Temperature 97.6 F 08/06/24 09:53 Pulse Rate 80 08/06/24 09:53 Respiratory Rate 16 08/06/24 09:53 Blood Pressure 116/85 08/06/24 09:53 Pulse Oximetry 100 08/06/24 09:53 Oxygen Delivery Room Air 08/06/24 09:53 Temperature 97.6 F 08/06/24 09:53 Pulse Rate 84 08/06/24 12:00 Respiratory Rate 16 08/06/24 12:00 Blood Pressure 124/73 08/06/24 12:00 Pulse Oximetry 100 08/06/24 12:00 Oxygen Delivery Room Air 08/06/24 09:53 MDM - Nausea/Vomiting/Diarrhea MDM Narrative Medical decision making narrative: patient presents the emergency department for nausea and vomiting. Reports this is an ongoing issue for her, but it has been worse than usual the last couple of days. She is afebrile and nontoxic appearing. Her vitals are stable. CBC with mild leukocytosis to 10.6. Metabolic panel without concerning findings. Urine without evidence of infection. test is negative. CT abdomen pelvis without acute findings. Patient was updated on workup and agrees with plan of care. She is to follow up her PCP. She was given warnings to return to the ER Differential Diagnosis Differential diagnosis: Likely food poisoning, gastroenteritis, dehydration and other (UTI, pancreatitis, biliary colic, GERD) Lab Data Attestation: I reviewed the patient's lab results. 08/06/24 10:33 08/06/24 10:33 Labs: Lab Results 08/06/24 08/06/24 Range/Units 10:30 10:33 WBC 10.6 H (4.5-10.0) K/mm3 RBC 4.33 (4.2-5.4) M/mm3 Hgb 13.1 (12.0-15.0) g/dL Hct 38.3 (37.0-47.0) % MCV 88.5 (80-100) fl MCH 30.3 (26-34) pg MCHC 34.2 (32-36) g/dl RDW 12.3 (11.5-14.5) % Plt Count 233 (150-375) k/mm3 MPV 9.5 (7.4-10.4) fl Immature Gran % (Auto) 0.3 (0-0.5) % Neut % (Auto) 83.6 H (45.5-73.1) % Lymph % (Auto) 9.8 L (18.3-44.2) % [place] % (Auto) 4.4 (2.6-8.5) % Eos % (Auto) 1.2 (0-4.4) % Baso % (Auto) 0.7 (0.2-1.2) % Lymph # (Auto) 1.03 (0.9-3.2) K/mm3 [place] # (Auto) 0.5 (0.1-0.6) K/mm3 Eos # (Auto) 0.1 (0-0.3) K/mm3 Baso # (Auto) 0.1 (0.0-0.1) K/mm3 Abs Immat Gran (auto) 0.03 (0.00-0.031) K/mm3 Absolute Neuts (auto) 8.8 H (1.3-6.7) K/mm3 Absolute Nucleated RBC 0.000 (0.0-0.012) K/mm3 Nucleated RBC % 0.0 (0.0-0.2) % Sodium 139 (137-145) mmol/L Potassium 3.6 (3.4-5.0) mmol/L Chloride 106 (98-107) mmol/L Carbon Dioxide 23 (22-30) mmol/L Anion Gap 10 (4-12) mmol/L BUN 9 (7-17) mg/dL Creatinine 0.70 (0.7-1.0) mg/dL Estim Creat Clear Calc 78 ml/min Estimated GFR > 60 (59 - ) Glucose 124 H (65-110) mg/dL Calcium 9.6 (8.4-10.2) mg/dL Total Bilirubin 0.5 (0.2-1.3) mg/dL AST 20 (14-36) U/L ALT 11 (6-35) U/L Alkaline Phosphatase 37 L (38-126) U/L Total Protein 9.0 H (6.3-8.2) g/dL Albumin 5.1 (3.5-5.1) g/dL Lipase 100 (23-300) U/L Urine Color Dark yellow (Yellow) Urine Appearance Turbid H (Clear) Urine pH 7.0 (5.0-9.0) Ur Specific [place] 1.029 (1.001-1.035) Urine Protein 1+ H (Negative) mg/dL Urine Glucose (UA) Negative (Negative) mg/dL Urine Ketones 2+ H (Negative) mg/dL Ur Blood (Man) 1+ H (Negative) Urine Nitrate Negative (Negative) Urine Bilirubin Negative (Negative) Urine Urobilinogen 1.0 (<2.0) mg/dL Add Ur Microanalysis Reviewed Leukocyte Esterase Rfl Negative (Negative) YRN/UL Urine RBC 0-2 (0-2) /hpf Urine WBC 0-5 (0-3) /hpf Ur Squamous Epith Cells None seen (Few) /hpf Urine Bacteria None seen /hpf Urine Casts 3-5 Urine Mucus Present /lpf POC Urine HCG, Qual Negative (Negative) Imaging Data Radiologist's impression: ITS Impressions Abdomen/Pelvis CT 08/06/24 11:52 IMPRESSION: 1. No etiology for the patient's symptoms. Critical Care Time Critical Care Time Critical Care Time: No Discharge Plan Discharge Clinical Impression: Nausea and vomiting Qualifiers: Vomiting type: unspecified Qualified Code(s): R11.2 - Nausea with vomiting, unspecified Patient Disposition: Home, Self-Care Condition: Improved Instructions: Abdominal Pain (ED) Additional Instructions: Return to the ER if you experience fever, worsening abdominal pain with nausea and vomiting, you are unable to keep down liquids or solids, blood in the stool, pain or burning with urination, blood in the urine or any other symptoms that are concerning to you Small, frequent meals. [place] diet. Remain well hydrated Follow up with primary care doctor and/or gastroenterology Prescriptions: No Action Nexplanon 68 mg implant 1 implant SUBDERMAL ONCE Rx Instructions: as a single dose bupropion HCl 150 mg tablet extended release 24 hr 150 mg PO QAM Qty: 90 1RF famotidine 40 mg tablet 40 mg PO DAILY Qty: 90 1RF Rx Instructions: will alternate with Pantoprazole ondansetron HCl 4 mg tablet 4 mg PO Q6H PRN (Reason: nausea and vomiting) Qty: 20 2RF guanfacine 2 mg tablet extended release 24 hr 2 mg PO DAILY Qty: 90 2RF Linzess 145 mcg capsule 145 mcg PO QAM Qty: 90 0RF escitalopram oxalate [Lexapro] 10 mg tablet 10 mg PO DAILY Qty: 90 1RF Hold Instructions: Order Change buspirone 15 mg tablet 15 mg PO BID Qty: 60 2RF pantoprazole 40 mg tablet,delayed release (DR/EC) 40 mg PO HS Qty: 90 1RF Trulance 3 mg tablet 3 mg PO DAILY Qty: 90 3RF promethazine 12.5 mg tablet 12.5 mg PO Q6H PRN (Reason: nausea and vomiting) Qty: 30 0RF Rx Instructions: NEEDS APPOINTMENT FOR FURTHER REFILLS ondansetron 4 mg tablet,disintegrating See Rx Instructions .ROUTE .COMPLEX Qty: 30 0RF Dose Instruction: DISSOLVE 1 TABLET ON THE TONGUE EVERY 8 HOURS Rx Instructions: DISSOLVE 1 TABLET ON THE TONGUE EVERY 8 HOURS Follow-up/Referrals: Donte Velez MD [Primary Care Provider] - Imtiaz Francis MD [Physician] -
[2024-08-06] MEDS: METOCLOPRAMIDE HCL INJ 10 MG/2 ML VIAL IV PUSH (10:37)
[2024-08-06] MEDS: SODIUM CHLORIDE 0.9% IV 1,000 ML 999 ML IV CONT (10:38)
[2024-08-06] MEDS: diphenhydrAMINE HCl INJ 50 MG/ML VIAL 25 MG IV PUSH (10:38)
[2024-08-06] MEDS: FAMOTIDINE 20 MG/2 ML VIAL IV PUSH (10:38)
[2024-08-06 10:41] LABS: Basophils Absolute Auto 0.1 K/mm3 (0.0-0.1); Basophils Percent Auto 0.7 % (0.2-1.2); Eosinophils Absolute Auto 0.1 K/mm3 (0-0.3); Eosinophils Percent Auto 1.2 % (0-4.4); Hematocrit 38.3 % (37.0-47.0); Hemoglobin 13.1 g/dL (12.0-15.0); Immature Granulocyte Absolute 0.03 K/mm3 (0.00-0.031); Immature Granulocyte Percent A 0.3 % (0-0.5); Lymphocytes Absolute Auto 1.03 K/mm3 (0.9-3.2); Lymphocytes Percent Auto 9.8 % (18.3-44.2); Mean Corpuscular HGB Conc 34.2 g/dl (32-36); Mean Corpuscular Hemoglobin 30.3 pg (26-34); Mean Corpuscular Volume 88.5 fl (80-100); Mean Platelet Volume 9.5 fl (7.4-10.4); Monocytes Absolute Auto 0.5 K/mm3 (0.1-0.6); Monocytes Percent Auto 4.4 % (2.6-8.5); Neutrophils Absolute Auto 8.8 K/mm3 (1.3-6.7); Neutrophils Percent Auto 83.6 % (45.5-73.1); Platelet Count Result 233 k/mm3 (150-375); Red Blood Count 4.33 M/mm3 (4.2-5.4); Red Cell Distribution Width 12.3 % (11.5-14.5); White Blood Count 10.6 K/mm3 (4.5-10.0)
[2024-08-06 10:44] LABS: BEDSIDEPREGUCG Negative (Negative)
[2024-08-06 10:50] LABS: Alanine Aminotransferase 11 U/L (6-35); Albumin Level 5.1 g/dL (3.5-5.1); Alkaline Phosphatase 37 U/L (38-126); Anion Gap 10 mmol/L (4-12); Aspartate Amino Transferase 20 U/L (14-36); Bilirubin,Total 0.5 mg/dL (0.2-1.3); Blood Urea Nitrogen 9 mg/dL (7-17); Calcium 9.6 mg/dL (8.4-10.2); Carbon Dioxide 23 mmol/L (22-30); Chloride 106 mmol/L (98-107); Estimated CRCL calculation 78 ml/min; Estimated Glomerular Filt Rate > 60; Glucose 124 mg/dL (65-110); Lipase 100 U/L (23-300); Potassium 3.6 mmol/L (3.4-5.0); Sodium 139 mmol/L (137-145)
[2024-08-06 10:58] LABS: Add Urine Microscopic? YES; Appearance Urine Turbid (Clear); Bacteria Urine None Seen /hpf; Bilirubin Urine Negative (Negative); Blood Urine 1+ (Negative); Color Urine Dark Yellow (Yellow); Glucose Urine UA Negative (Negative); Ketones Urine 2+ mg/dL (Negative); Leukocyte Esterase Ur Negative LEU/UL (Negative); Need Manual Microscopic Reviewed; Nitrate Urine Negative (Negative); Protein Urine 1+ mg/dL (Negative); RBC Urine 0-2 /hpf (0-2); Specific Grav Ur 1.029 (1.001-1.035); Squamous Epithelial Cell Urine None Seen /hpf (Few); WBC Urine 0-5 /hpf (0-3)
[2024-08-06 10:59] LABS: Mucus Urine Present /lpf
[2024-08-06 11:00] VITALS: BP 128/67; PULSE 70; RESP 18; O2SAT 99
[2024-08-06 12:00] VITALS: BP 124/73; PULSE 84; RESP 16; O2SAT 100
[2024-08-06 12:30] VITALS: BP 128/72; PULSE 79; RESP 18; O2SAT 100
== END 2024-08-06 12:41 | disposition home or self-care (01) ==
PROVIDERS: Emergency Provider Physician Assistant; PCP Family Medicine
DX: R11.2 Nausea with vomiting, unspecified (principal); F90.9 Attention-deficit hyperactivity disorder, unspecified type; F17.200 Nicotine dependence, unspecified, uncomplicated
CPT/HCPCS: 36415; 74177; 80053; 81001; 81025; 83690; 85025; 96361; 96374; 96375; 99284; J1200; J2765; J7030; Q9967

== ENCOUNTER 2024-08-08 11:04 | Emergency (ER) | payer BC, SELFPAY ==
--- NOTE | ~2024-08-08 | XR_ITS ---
EXAMINATION: XR chest 2V DATE: 08/08/2024 13:35 INDICATION: Chest pain. Vomiting. TECHNIQUE: Frontal and lateral views of the chest were obtained. COMPARISON: CT abdomen and pelvis 08/06/2024 FINDINGS: There is no pneumonia, pleural effusion, or pneumothorax. The heart size is normal. IMPRESSION: 1. No acute cardiopulmonary disease. Reviewed, dictated and finalized at location A. ER DEVELOPMENT MANAGER
[2024-08-08 11:28] VITALS: BP 133/77; PULSE 68; RESP 20; TEMP 36.4; O2SAT 100
[2024-08-08 13:02] VITALS: BP 123/76; PULSE 70; RESP 18; O2SAT 100
--- NOTE | 2024-08-08 13:07 | ECG_ITS ---
Test Date: 2024-08-08 14:08:24 Measurements Intervals [place] Rate: 69 P: 87 NE: 152 QRS: 87 QRSD: 82 T: 43 QT: 393 QTc: 423 Interpretive Statements SINUS RHYTHM WITH MARKED SINUS ARRHYTHMIA NONSPECIFIC T-WAVE ABNORMALITY- ANT/INF LEADS BASELINE ARTIFACT- I, II, III, AVR, AVL, AVF, V1-V6 BORDERLINE ECG No previous ECG available for comparison Electronically Signed On 08-08-2024 14:26:02 PMO MANAGER by Itz Hernandez D.O.
--- NOTE | 2024-08-08 13:09 | ED.NAVMDI ---
HPI - Nausea/Vomiting/Diarrhea General Chief complaint: Nausea/Vomiting/Diarrhea <Bianca Lafleur PA-C - Last Filed: 08/08/24 13:11> Stated complaint: N/V (seen here two days ago) <Bianca Lafleur PA-C - Last Filed: 08/08/24 13:11> Time Seen by Provider: 08/08/24 15:03 <Bianca Lafleur PA-C - Last Filed: 08/08/24 13:11> Focused HPI: 19-year-old female presents emergency department for nausea and vomiting for the past few days. States she was recently exposed to someone with similar symptoms. She is reporting chest pain since she has been vomiting so much. Reports diffuse abdominal pain. She was evaluated in our emergency department 2 days ago for the same symptoms. She has a negative workup at that time including CT abdomen pelvis. She is reporting diffuse abdominal discomfort from vomiting but politely declines a repeat CT today. She denies dysuria, hematuria, diarrhea, fever. GENERAL: Well-appearing, well-nourished, and in no acute distress. HEAD: Normocephalic, atraumatic. CHEST: Clear to auscultation. ?No respiratory distress. ABDOMEN: Abdomen soft, nontender, no rebound, guarding or rigidity. No CVA tenderness. HEART: Regular rate and rhythm.? NEURO: ?Alert and oriented x3. Patient screened in triage and initial orders placed.? ?Additional care and disposition to be based upon?diagnostic testing and treatment. <Bianca Lafleur PA-C - Last Filed: 08/08/24 13:11> History of Present Illness HPI Narrative: AGREE WITH THE ABOVE <Zabrina Colón MD - Last Filed: 08/08/24 17:43> Related Data Home medications: Home Medications Medication Instructions Recorded Confirmed etonogestrel 68 mg subdermal 1 implant subdermal ONCE 05/19/20 09/05/23 implant (Nexplanon) <Bianca Lafleur PA-C - Last Filed: 08/08/24 13:11> Allergies/Adverse reactions: Allergies Allergy/AdvReac Type Severity Reaction Status Date / Time No Known Allergies Allergy Verified 08/08/24 16:03 <Bianca Lafleur PA-C - Last Filed: 08/08/24 13:11> Review of Systems Review of Systems: All systems reviewed & are unremarkable except as noted in HPI and below <Zabrina Colón MD - Last Filed: 08/08/24 17:43> [facility] Past Medical History Medical History: Medical History ADHD Anxiety Aphthous ulcer of mouth Attention-deficit hyperactivity disorder, combined type Chronic pain of left knee <Bianca Lafleur PA-C - Last Filed: 08/08/24 13:11> Surgical History Surgical History: Surgical History History of colonoscopy No pertinent past surgical history <Bianca Lafleur PA-C - Last Filed: 08/08/24 13:11> Social History Social History: Social History Smoking status: Current every day smoker Alcohol intake: never Substance use: current Substance use type: marijuana Other substance usage details: Smokes marijuana Last use: 08/28/23 Lack of Transportation: No Lack of Food: Never True Current Housing: I Have Housing Concerned About Future Housing: No Difficulty Paying Gas/Electric Bills: No Difficulty Paying for Meds: No Currently Unemployed: No Education: High School Diploma/GED Difficulty w/ Childcare or Family Care: No Living arrangements: with family <Bianca Lafleur PA-C - Last Filed: 08/08/24 13:11> Exam Narrative: GENERAL APPEARANCE: WELL-DEVELOPED, MALNOURISHED SKIN: NORMAL COLOR HEAD: NORMOCEPHALIC, NONTRAUMATIC EYES: CLEAR CONJUNCTIVA ENT: OROPHARYNX NORMAL, EARS NORMAL, NOSE NORMAL NECK: SUPPLE, NONTENDER CHEST AND RESPIRATORY: AIRWAY PATENT, NO RESPIRATORY DISTRESS, NO ACCESSORY MUSCLE USE HEART: REGULAR RATE/RHYTHM ABDOMEN: SOFT, NONTENDER, NO ORGANOMEGALY, QUIET BOWEL SOUNDS VASCULAR: NORMAL PERIPHERAL PULSES, NORMAL CAPILLARY REFILL. MUSCULOSKELETAL: NORMAL RANGE OF MOTION, NONTENDER BACK NEUROLOGIC: ALERT AND ORIENTED ?3, GASTROENTEROLOGY PHYSICIAN IS NORMAL TESTED, NO GROSS MOTOR DEFICIT <Zabrina Colón MD - Last Filed: 08/08/24 17:43> Course Vital Signs Vital signs: Vital Signs Temperature 36.4 C L 08/08/24 11:28 Pulse Rate 68 08/08/24 11:28 Respiratory Rate 20 08/08/24 11:28 Blood Pressure 133/77 08/08/24 11:28 Pulse Oximetry 100 08/08/24 11:28 Oxygen Delivery Room Air 08/08/24 11:28 Temperature 36.5 C 08/08/24 14:46 Pulse Rate 62 08/08/24 16:15 Respiratory Rate 14 08/08/24 16:15 Blood Pressure 122/73 08/08/24 16:15 Pulse Oximetry 98 08/08/24 16:15 Oxygen Delivery Room Air 08/08/24 14:46 <Bianca Lafleur PA-C - Last Filed: 08/08/24 13:11> Vital Signs Temperature 36.4 C L 08/08/24 11:28 Pulse Rate 68 08/08/24 11:28 Respiratory Rate 20 08/08/24 11:28 Blood Pressure 133/77 08/08/24 11:28 Pulse Oximetry 100 08/08/24 11:28 Oxygen Delivery Room Air 08/08/24 11:28 Temperature 36.5 C 08/08/24 14:46 Pulse Rate 62 08/08/24 16:15 Respiratory Rate 14 08/08/24 16:15 Blood Pressure 122/73 08/08/24 16:15 Pulse Oximetry 98 08/08/24 16:15 Oxygen Delivery Room Air 08/08/24 14:46 <Zabrina Colón MD - Last Filed: 08/08/24 17:43> MDM - Nausea/Vomiting/Diarrhea MDM Narrative Medical decision making narrative: PATIENT CAME WITH NAUSEA AND VOMITING FOR THE LAST 3 DAYS, HISTORY OF MARIJUANA INDUCED VOMITING, CYCLIC VOMITING SYNDROME, CURRENTLY ON PROTONIX VITAL SIGNS ARE STABLE PHYSICAL EXAMINATION SHOWED MALNOURISHED PATIENT, WITHOUT LOCALIZED TENDERNESS DIFFERENTIAL DIAGNOSIS MARIJUANA INDUCED VOMITING, CYCLIC VOMITING SYNDROME, STRESS RELATED SYMPTOMS, ELECTROLYTE IMBALANCE, DEHYDRATION, URINARY TRACT INFECTION BLOOD WORKUP TODAY INCLUDE CBC, CMP SHOWED NO ACUTE ABNORMALITIES, URINALYSIS SHOW NO EVIDENCE OF INFECTION IN THE ED PATIENT RECEIVED 1 L OF NORMAL SALINE, REGLAN, BENADRYL, ZOFRAN AND PANTOPRAZOLE WITH REMARKABLE IMPROVEMENT. DISCHARGED ON PHENERGAN SUPPOSITORY THE PT WAS DISCHARGED TO HOME.THE PT,S CONDITION UPON DISCHARGE WAS FAIR,EDUCATION WAS PROVIDED TO THE PT IN REFERENCE TO THE FINAL IMPRESSION,DISCHARGE STUDY RESULTS,TREATMENT,PROGNOSIS AND NEED FOR FOLLOW UP . <Zabrina Colón MD - Last Filed: 08/08/24 17:43> Differential Diagnosis Differential diagnosis: Likely other ( ABOVE) <Zabrina Colón MD - Last Filed: 08/08/24 17:43> Medical Records Attestation: I reviewed the patient's medical records. <Zabrina Colón MD - Last Filed: 08/08/24 17:43> Lab Data Attestation: I reviewed the patient's lab results. <Zabrina Colón MD - Last Filed: 08/08/24 17:43> Result diagrams: 08/08/24 14:03 08/08/24 14:03 <Bianca Lafleur PA-C - Last Filed: 08/08/24 13:11> Labs: Lab Results 08/08/24 08/08/24 Range/Units 13:08 14:03 WBC 7.2 (4.5-10.0) K/mm3 RBC 4.45 (4.2-5.4) M/mm3 Hgb 13.3 (12.0-15.0) g/dL Hct 39.3 (37.0-47.0) % MCV 88.3 (80-100) fl MCH 29.9 (26-34) pg MCHC 33.8 (32-36) g/dl RDW 12.4 (11.5-14.5) % Plt Count 254 (150-375) k/mm3 MPV 9.5 (7.4-10.4) fl Immature Gran % (Auto) 0.3 (0-0.5) % Neut % (Auto) 87.2 H (45.5-73.1) % Lymph % (Auto) 9.4 L (18.3-44.2) % [place]es % (Auto) 2.4 L (2.6-8.5) % Eos % (Auto) 0.1 (0-4.4) % Baso % (Auto) 0.6 (0.2-1.2) % Lymph # (Auto) 0.68 L (0.9-3.2) K/mm3 [place]es # (Auto) 0.2 (0.1-0.6) K/mm3 Eos # (Auto) 0.0 (0-0.3) K/mm3 Baso # (Auto) 0.0 (0.0-0.1) K/mm3 Abs Immat Gran (auto) 0.02 (0.00-0.031) K/mm3 Absolute Neuts (auto) 6.3 (1.3-6.7) K/mm3 Absolute Nucleated RBC 0.000 (0.0-0.012) K/mm3 Nucleated RBC % 0.0 (0.0-0.2) % Sodium 143 (137-145) mmol/L Potassium 4.1 (3.4-5.0) mmol/L Chloride 106 (98-107) mmol/L Carbon Dioxide 21 L (22-30) mmol/L Anion Gap 16 H (4-12) mmol/L BUN 11 (7-17) mg/dL Creatinine 0.60 L (0.7-1.0) mg/dL Estim Creat Clear Calc 85 ml/min Estimated GFR > 60 (59 - ) Glucose 112 H (65-110) mg/dL Calcium 10.1 (8.4-10.2) mg/dL Magnesium 2.0 (1.6-2.3) mg/dL Total Bilirubin 0.7 (0.2-1.3) mg/dL AST 22 (14-36) U/L ALT 12 (6-35) U/L Alkaline Phosphatase 39 (38-126) U/L Total Protein 10.0 H (6.3-8.2) g/dL Albumin 5.6 H (3.5-5.1) g/dL Lipase 48 (23-300) U/L Urine Color Dark yellow (Yellow) Urine Appearance Cloudy H (Clear) Urine pH 6.0 (5.0-9.0) Ur Specific [place] 1.035 (1.001-1.035) Urine Protein 1+ H (Negative) mg/dL Urine Glucose (UA) Negative (Negative) mg/dL Urine Ketones 4+ H (Negative) mg/dL Ur Blood (Man) Non-hemolyzed trace H (Negative) Urine Nitrate Negative (Negative) Urine Bilirubin Negative (Negative) Urine Urobilinogen 1.0 (<2.0) mg/dL Add Ur Microanalysis Reviewed Leukocyte Esterase Rfl Negative (Negative) YRN/UL Urine RBC 3-5 H (0-2) /hpf Urine WBC 0-5 (0-3) /hpf Ur Squamous Epith Cells Few (Few) /hpf Urine Bacteria None seen /hpf Urine Casts 3-5 Urine Mucus Present /lpf POC Urine HCG, Qual Negative (Negative) Influenza A (RT-PCR) Negative (Negative) Influenza B (RT-PCR) Negative (Negative) RSV (RT-PCR) Negative (Negative) SARS-CoV-2 RNA (RT-PCR) Negative (Negative) <Bianca Lafleur PA-C - Last Filed: 08/08/24 13:11> Lab Results 08/08/24 08/08/24 Range/Units 13:08 14:03 WBC 7.2 (4.5-10.0) K/mm3 RBC 4.45 (4.2-5.4) M/mm3 Hgb 13.3 (12.0-15.0) g/dL Hct 39.3 (37.0-47.0) % MCV 88.3 (80-100) fl MCH 29.9 (26-34) pg MCHC 33.8 (32-36) g/dl RDW 12.4 (11.5-14.5) % Plt Count 254 (150-375) k/mm3 MPV 9.5 (7.4-10.4) fl Immature Gran % (Auto) 0.3 (0-0.5) % Neut % (Auto) 87.2 H (45.5-73.1) % Lymph % (Auto) 9.4 L (18.3-44.2) % Mayes % (Auto) 2.4 L (2.6-8.5) % Eos % (Auto) 0.1 (0-4.4) % Baso % (Auto) 0.6 (0.2-1.2) % Lymph # (Auto) 0.68 L (0.9-3.2) K/mm3 Mayes # (Auto) 0.2 (0.1-0.6) K/mm3 Eos # (Auto) 0.0 (0-0.3) K/mm3 Baso # (Auto) 0.0 (0.0-0.1) K/mm3 Abs Immat Gran (auto) 0.02 (0.00-0.031) K/mm3 Absolute Neuts (auto) 6.3 (1.3-6.7) K/mm3 Absolute Nucleated RBC 0.000 (0.0-0.012) K/mm3 Nucleated RBC % 0.0 (0.0-0.2) % Sodium 143 (137-145) mmol/L Potassium 4.1 (3.4-5.0) mmol/L Chloride 106 (98-107) mmol/L Carbon Dioxide 21 L (22-30) mmol/L Anion Gap 16 H (4-12) mmol/L BUN 11 (7-17) mg/dL Creatinine 0.60 L (0.7-1.0) mg/dL Estim Creat Clear Calc 85 ml/min Estimated GFR > 60 (59 - ) Glucose 112 H (65-110) mg/dL Calcium 10.1 (8.4-10.2) mg/dL Magnesium 2.0 (1.6-2.3) mg/dL Total Bilirubin 0.7 (0.2-1.3) mg/dL AST 22 (14-36) U/L ALT 12 (6-35) U/L Alkaline Phosphatase 39 (38-126) U/L Total Protein 10.0 H (6.3-8.2) g/dL Albumin 5.6 H (3.5-5.1) g/dL Lipase 48 (23-300) U/L Urine Color Dark yellow (Yellow) Urine Appearance Cloudy H (Clear) Urine pH 6.0 (5.0-9.0) Ur Specific [place] 1.035 (1.001-1.035) Urine Protein 1+ H (Negative) mg/dL Urine Glucose (UA) Negative (Negative) mg/dL Urine Ketones 4+ H (Negative) mg/dL Ur Blood (Man) Non-hemolyzed trace H (Negative) Urine Nitrate Negative (Negative) Urine Bilirubin Negative (Negative) Urine Urobilinogen 1.0 (<2.0) mg/dL Add Ur Microanalysis Reviewed Leukocyte Esterase Rfl Negative (Negative) YRN/UL Urine RBC 3-5 H (0-2) /hpf Urine WBC 0-5 (0-3) /hpf Ur Squamous Epith Cells Few (Few) /hpf Urine Bacteria None seen /hpf Urine Casts 3-5 Urine Mucus Present /lpf POC Urine HCG, Qual Negative (Negative) Influenza A (RT-PCR) Negative (Negative) Influenza B (RT-PCR) Negative (Negative) RSV (RT-PCR) Negative (Negative) SARS-CoV-2 RNA (RT-PCR) Negative (Negative) <Zabrina Colón MD - Last Filed: 08/08/24 17:43> Critical Care Time Critical Care Time Critical Care Time: No <Zabrina Colón MD - Last Filed: 08/08/24 17:43> Discharge Plan Discharge Clinical Impression: Vomiting <Bianca Lafleur PA-C - Last Filed: 08/08/24 13:11> Patient Disposition: Home, Self-Care <Bianca Lafleur PA-C - Last Filed: 08/08/24 13:11> Condition: Improved <Bianca Lafleur PA-C - Last Filed: 08/08/24 13:11> Instructions: Acute Nausea and Vomiting (ED) <Bianca Lafleur PA-C - Last Filed: 08/08/24 13:11> Additional Instructions: RETURN IF SYMPTOMS ARE WORSENING , CALL YOUR FAMILY PHYSICIAN FOR APPOINTMENT, TAKE TYLENOL NEEDED FOR ACHES AND PAIN, CONTINUE HOME MEDICATIONS. <Bianca Lafleur PA-C - Last Filed: 08/08/24 13:11> Prescriptions: New promethazine 25 mg suppository 25 mg RECTAL Q6H PRN (Reason: nausea and vomiting) Qty: 12 0RF No Action Nexplanon 68 mg implant 1 implant SUBDERMAL ONCE Rx Instructions: as a single dose bupropion HCl 150 mg tablet extended release 24 hr 150 mg PO QAM Qty: 90 1RF famotidine 40 mg tablet 40 mg PO DAILY Qty: 90 1RF Rx Instructions: will alternate with Pantoprazole ondansetron HCl 4 mg tablet 4 mg PO Q6H PRN (Reason: nausea and vomiting) Qty: 20 2RF guanfacine 2 mg tablet extended release 24 hr 2 mg PO DAILY Qty: 90 2RF Linzess 145 mcg capsule 145 mcg PO QAM Qty: 90 0RF escitalopram oxalate [Lexapro] 10 mg tablet 10 mg PO DAILY Qty: 90 1RF Hold Instructions: Order Change buspirone 15 mg tablet 15 mg PO BID Qty: 60 2RF pantoprazole 40 mg tablet,delayed release (DR/EC) 40 mg PO HS Qty: 90 1RF Trulance 3 mg tablet 3 mg PO DAILY Qty: 90 3RF promethazine 12.5 mg tablet 12.5 mg PO Q6H PRN (Reason: nausea and vomiting) Qty: 30 0RF Rx Instructions: NEEDS APPOINTMENT FOR FURTHER REFILLS ondansetron 4 mg tablet,disintegrating See Rx Instructions .ROUTE .COMPLEX Qty: 30 0RF Dose Instruction: DISSOLVE 1 TABLET ON THE TONGUE EVERY 8 HOURS Rx Instructions: DISSOLVE 1 TABLET ON THE TONGUE EVERY 8 HOURS <Bianca Lafleur PA-C - Last Filed: 08/08/24 13:11> Follow-up/Referrals: Donte Velez MD [Primary Care Provider] - <Bianca Lafleur PA-C - Last Filed: 08/08/24 13:11>
[2024-08-08 14:12] LABS: BEDSIDEPREGUCG Negative (Negative)
[2024-08-08 14:17] LABS: Basophils Percent Auto 0.6 % (0.2-1.2); Eosinophils Percent Auto 0.1 % (0-4.4); Hematocrit 39.3 % (37.0-47.0); Hemoglobin 13.3 g/dL (12.0-15.0); Immature Granulocyte Absolute 0.02 K/mm3 (0.00-0.031); Immature Granulocyte Percent A 0.3 % (0-0.5); Lymphocytes Absolute Auto 0.68 K/mm3 (0.9-3.2); Lymphocytes Percent Auto 9.4 % (18.3-44.2); Mean Corpuscular HGB Conc 33.8 g/dl (32-36); Mean Corpuscular Hemoglobin 29.9 pg (26-34); Mean Corpuscular Volume 88.3 fl (80-100); Mean Platelet Volume 9.5 fl (7.4-10.4); Monocytes Absolute Auto 0.2 K/mm3 (0.1-0.6); Monocytes Percent Auto 2.4 % (2.6-8.5); Neutrophils Absolute Auto 6.3 K/mm3 (1.3-6.7); Neutrophils Percent Auto 87.2 % (45.5-73.1); Platelet Count Result 254 k/mm3 (150-375); Red Blood Count 4.45 M/mm3 (4.2-5.4); Red Cell Distribution Width 12.4 % (11.5-14.5); White Blood Count 7.2 K/mm3 (4.5-10.0)
[2024-08-08 14:32] LABS: Alanine Aminotransferase 12 U/L (6-35); Albumin Level 5.6 g/dL (3.5-5.1); Alkaline Phosphatase 39 U/L (38-126); Anion Gap 16 mmol/L (4-12); Aspartate Amino Transferase 22 U/L (14-36); Bilirubin,Total 0.7 mg/dL (0.2-1.3); Blood Urea Nitrogen 11 mg/dL (7-17); Calcium 10.1 mg/dL (8.4-10.2); Carbon Dioxide 21 mmol/L (22-30); Chloride 106 mmol/L (98-107); Estimated CRCL calculation 85 ml/min; Estimated Glomerular Filt Rate > 60; Glucose 112 mg/dL (65-110); Lipase 48 U/L (23-300); Potassium 4.1 mmol/L (3.4-5.0); Sodium 143 mmol/L (137-145)
[2024-08-08 14:45] LABS: Add Urine Microscopic? YES; Appearance Urine Cloudy (Clear); Bacteria Urine None Seen /hpf; Bilirubin Urine Negative (Negative); Blood Urine Non-Hemolyzed Trace (Negative); Color Urine Dark Yellow (Yellow); Glucose Urine UA Negative (Negative); Ketones Urine 4+ mg/dL (Negative); Leukocyte Esterase Ur Negative LEU/UL (Negative); Mucus Urine Present /lpf; Need Manual Microscopic Reviewed; Nitrate Urine Negative (Negative); Protein Urine 1+ mg/dL (Negative); Specific Grav Ur 1.035 (1.001-1.035); Squamous Epithelial Cell Urine Few /hpf (Few); WBC Urine 0-5 /hpf (0-3)
[2024-08-08 14:46] VITALS: BP 126/78; PULSE 71; RESP 18; TEMP 36.5; O2SAT 100
[2024-08-08 14:54] LABS: Influenza A QL RT-PCR Negative (Negative); Influenza B QL RT-PCR Negative (Negative); RSV RNA, RT-PCR Negative (Negative); SARS-CoV-2 RNA PCR Negative (Negative)
[2024-08-08] MEDS: SODIUM CHLORIDE 0.9% IV 1,000 ML 999 ML IV CONT (16:04)
[2024-08-08] MEDS: ONDANSETRON INJ 4 MG/2 ML VIAL IV PUSH (16:06)
[2024-08-08] MEDS: METOCLOPRAMIDE HCL INJ 10 MG/2 ML VIAL IV PUSH (16:07)
[2024-08-08] MEDS: diphenhydrAMINE HCl INJ 50 MG/ML VIAL IV PUSH (16:09)
[2024-08-08] MEDS: PANTOPRAZOLE SODIUM IV 40 MG VIAL IV PUSH (16:10)
[2024-08-08 16:15] VITALS: BP 122/73; PULSE 62; RESP 14; O2SAT 98
[2024-08-08 18:08] VITALS: BP 120/78; PULSE 79; RESP 16; O2SAT 100
== END 2024-08-08 18:09 | disposition home or self-care (01) ==
PROVIDERS: Physician Assistant; Emergency Provider Emergency Medicine; PCP Family Medicine
DX: R11.2 Nausea with vomiting, unspecified (principal); F90.9 Attention-deficit hyperactivity disorder, unspecified type; F41.9 Anxiety disorder, unspecified; Z20.822 Contact with and (suspected) exposure to COVID-19
CPT/HCPCS: 36415; 71046; 80053; 81001; 81025; 83690; 83735; 85025; 87637; 93005; 96361; 96374; 96375; 99284; J1200; J2405; J2470; J2765; J7030

== ENCOUNTER 2024-08-12 10:29 | Emergency (ER) | payer BC, SELFPAY ==
--- NOTE | ~2024-08-12 | CT_ITS ---
EXAMINATION: CT abdomen pelvis w con DATE: 08/12/2024 14:51 INDICATION: Abdominal pain TECHNIQUE: Computed tomography (CT) of the abdomen and pelvis was performed with 100 mL Omnipaque-350 intravenous contrast. Automated exposure control and iterative reconstruction technique were employe d. The dose-length product was 175.65 mGy-cm. COMPARISON: 08/06/2024 FINDINGS: Lung bases are clear. Heart size is normal. No pericardial or pleural effusion. There is diffuse mild periportal edema. Gallbladder, spleen, pancreas, bilateral adrenal glands and kidneys are normal. Bl adder and anteverted uterus are normal. There are small low-attenuation follicles at both ovaries. Th e appendix is not visualized. No pericecal inflammatory change to suggest acute appendicitis. No free intraperitoneal gas or fluid. No pathologically enlarged abdominal or pelvic lymphadenopathy. Bones are unremarkable. IMPRESSION: 1. Suspect mild periportal edema which can be seen in the setting of acute hepatitis, cholangitis, ac morongo pyelonephritis, congestive heart failure or other secondary causes of cardiac congestion, hepatic trauma or aggressive fluid resuscitation. Reviewed, dictated and finalized at location B. RAT TRAPPER IMPRESSION: 1. Suspect mild periportal edema which can be seen in the setting of acute hepa titis, cholangitis, acute pyelonephritis, congestive heart failure or other sec ondary causes of cardiac congestion, hepatic trauma or aggressive fluid resusci tation.
--- NOTE | 2024-08-12 10:30 | PC.NURSE ---
Pt presented with electric heating pad. Instructed can not use in the ER
[2024-08-12 10:34] VITALS: BP 134/81; PULSE 78; RESP 16; TEMP 36.6; O2SAT 100
--- NOTE | 2024-08-12 12:56 | ED.NAVMDI ---
HPI - Nausea/Vomiting/Diarrhea General Chief complaint: Nausea/Vomiting/Diarrhea <OPAL Mclain Last Filed: 08/12/24 13:20> Stated complaint: nausea, vomiting, constipation <OPAL Mclain Last Filed: 08/12/24 13:20> Time Seen by Provider: 08/12/24 12:56 <OPAL Mclain Last Filed: 08/12/24 13:20> Focused HPI: Patient is a 19 y/o female who presents to the ED with c/o nausea, vomiting, constipation. Patient reports she has had the symptoms since last Monday. She was seen in the ED here twice last week and had negative workup. she was told her symptoms may be related to marijuana use. Patient reports she has not smoked in the last 5 days. She states symptoms have since persisted. She has not been able to eat or drink anything. Feels very dehydrated. Patient also reports having burning pain in her chest related to acid reflux, bilateral abdominal pain. Denies fevers. GENERAL: Well-appearing, thin, and in no acute distress. HEAD: Normocephalic, atraumatic. CHEST: Clear to auscultation. ?No respiratory distress. HEART: Regular rate and rhythm.? ABD: Mild discomfort in R mid abdomen. Normoactive BS. NEURO: ?Alert and oriented x3. Patient screened in triage and initial orders placed.? ?Additional care and disposition to be based upon?diagnostic testing and treatment. <OPAL Mclain Last Filed: 08/12/24 13:20> Source: patient <OPAL Mclain Last Filed: 08/12/24 13:20> Mode of arrival: ambulatory <OPAL Mclain Last Filed: 08/12/24 13:20> Limitations: no limitations <OPAL Mclain Last Filed: 08/12/24 13:20> Related Data Home medications: Home Medications Medication Instructions Recorded Confirmed etonogestrel 68 mg subdermal 1 implant subdermal ONCE 05/19/20 09/05/23 implant (Nexplanon) <GENTRY MclainC - Last Filed: 08/12/24 13:20> Allergies/Adverse reactions: Allergies Allergy/AdvReac Type Severity Reaction Status Date / Time No Known Allergies Allergy Verified 08/12/24 13:57 <OPAL Mclain Last Filed: 08/12/24 13:20> [facility] Past Medical History Medical History: Medical History ADHD Anxiety Aphthous ulcer of mouth Attention-deficit hyperactivity disorder, combined type Chronic pain of left knee <OPAL Mclain Last Filed: 08/12/24 13:20> Surgical History Surgical History: Surgical History History of colonoscopy No pertinent past surgical history <OPAL Mclain Last Filed: 08/12/24 13:20> Social History Social History: Social History Smoking status: Current every day smoker Alcohol intake: never Substance use: current Substance use type: marijuana Other substance usage details: Smokes marijuana Last use: 08/28/23 Lack of Transportation: No Lack of Food: Never True Current Housing: I Have Housing Concerned About Future Housing: No Difficulty Paying Gas/Electric Bills: No Difficulty Paying for Meds: No Currently Unemployed: No Education: High School Diploma/GED Difficulty w/ Childcare or Family Care: No Living arrangements: with family <OPAL Mclain Last Filed: 08/12/24 13:20> Course Vital Signs Vital signs: Vital Signs Temperature 97.9 F 08/12/24 10:34 Pulse Rate 78 08/12/24 10:34 Respiratory Rate 16 08/12/24 10:34 Blood Pressure 134/81 08/12/24 10:34 Pulse Oximetry 100 08/12/24 10:34 Oxygen Delivery Room Air 08/12/24 10:34 Temperature 97.9 F 08/12/24 10:34 Pulse Rate 66 08/12/24 16:21 Respiratory Rate 19 08/12/24 16:21 Blood Pressure 113/73 08/12/24 16:21 Pulse Oximetry 100 08/12/24 16:21 Oxygen Delivery Room Air 08/12/24 10:34 <Nicol Borja PA-C - Last Filed: 08/12/24 13:20> Vital Signs Temperature 97.9 F 08/12/24 10:34 Pulse Rate 78 08/12/24 10:34 Respiratory Rate 16 08/12/24 10:34 Blood Pressure 134/81 08/12/24 10:34 Pulse Oximetry 100 08/12/24 10:34 Oxygen Delivery Room Air 08/12/24 10:34 Temperature 97.9 F 08/12/24 10:34 Pulse Rate 66 08/12/24 16:21 Respiratory Rate 19 08/12/24 16:21 Blood Pressure 113/73 08/12/24 16:21 Pulse Oximetry 100 08/12/24 16:21 Oxygen Delivery Room Air 08/12/24 10:34 <Uday Chaidez MD - Last Filed: 08/12/24 18:14> MDM - Nausea/Vomiting/Diarrhea MDM Narrative Medical decision making narrative: MSE by PHYLLIS in triage. <Nicol Borja PA-C - Last Filed: 08/12/24 13:20> MSE by PHYLLIS in triage. Patient presents emergency department for evaluation for persistent nausea and vomiting. Patient states he does take Zofran daily. Patient was afebrile with no leukocytosis hemoglobin of 12.5. No acute abnormalities on her CMP. Patient initially required additional medications for nausea control. Patient reports the Haldol that helped. Patient states that her Zofran prescription ran out this morning. Patient was also educated on cannabinoid hyperemesis syndrome. <Uday Chaidez MD - Last Filed: 08/12/24 18:14> Differential Diagnosis Differential diagnosis: Likely traveler's diarrhea, food poisoning, gastroenteritis, drug-induced nausea and vomiting and dehydration <Uday Chaidez MD - Last Filed: 08/12/24 18:14> Lab Data Attestation: I reviewed the patient's lab results. <Uday Chaidez MD - Last Filed: 08/12/24 18:14> Result diagrams: 08/12/24 13:09 08/12/24 13:09 <Nicol Borja PA-C - Last Filed: 08/12/24 13:20> Labs: Lab Results 08/12/24 08/12/24 08/12/24 Range/Units 13:09 13:09 13:09 WBC 4.9 (4.5-10.0) K/mm3 RBC 4.10 L (4.2-5.4) M/mm3 Hgb 12.5 (12.0-15.0) g/dL Hct 36.7 L (37.0-47.0) % MCV 89.5 (80-100) fl MCH 30.5 (26-34) pg MCHC 34.1 (32-36) g/dl RDW 12.4 (11.5-14.5) % Plt Count 237 (150-375) k/mm3 MPV 9.5 (7.4-10.4) fl Immature Gran % (Auto) 0.2 (0-0.5) % Neut % (Auto) 70.1 (45.5-73.1) % Lymph % (Auto) 22.8 (18.3-44.2) % [place] % (Auto) 5.3 (2.6-8.5) % Eos % (Auto) 0.8 (0-4.4) % Baso % (Auto) 0.8 (0.2-1.2) % Lymph # (Auto) 1.11 (0.9-3.2) K/mm3 [place] # (Auto) 0.3 (0.1-0.6) K/mm3 Eos # (Auto) 0.0 (0-0.3) K/mm3 Baso # (Auto) 0.0 (0.0-0.1) K/mm3 Abs Immat Gran (auto) 0.01 (0.00-0.031) K/mm3 Absolute Neuts (auto) 3.4 (1.3-6.7) K/mm3 Absolute Nucleated RBC 0.000 (0.0-0.012) K/mm3 Nucleated RBC % 0.0 (0.0-0.2) % Sodium Cancelled 140 Potassium Cancelled 3.6 Chloride Cancelled Carbon Dioxide Anion Gap BUN Creatinine Estim Creat Clear Calc Estimated GFR Glucose Calcium Magnesium (1.6-2.3) mg/dL Total Bilirubin AST ALT Alkaline Phosphatase Total Protein Albumin Lipase Urine Color (Yellow) Urine Appearance (Clear) Urine pH (5.0-9.0) Ur Specific [place] (1.001-1.035) Urine Protein (Negative) mg/dL Urine Glucose (UA) (Negative) mg/dL Urine Ketones (Negative) mg/dL Ur Blood (Man) (Negative) Urine Nitrate (Negative) Urine Bilirubin (Negative) Urine Urobilinogen (<2.0) mg/dL Add Ur Microanalysis Leukocyte Esterase Rfl (Negative) YRN/UL Urine RBC (0-2) /hpf Urine WBC (0-3) /hpf Ur Squamous Epith Cells (Few) /hpf Urine Bacteria /hpf Urine Casts Urine Mucus /lpf POC Urine HCG, Qual (Negative) 08/12/24 08/12/24 08/12/24 Range/Units 13:09 13:09 13:09 WBC (4.5-10.0) K/mm3 RBC (4.2-5.4) M/mm3 Hgb (12.0-15.0) g/dL Hct (37.0-47.0) % MCV (80-100) fl MCH (26-34) pg MCHC (32-36) g/dl RDW (11.5-14.5) % Plt Count (150-375) k/mm3 MPV (7.4-10.4) fl Immature Gran % (Auto) (0-0.5) % Neut % (Auto) (45.5-73.1) % Lymph % (Auto) (18.3-44.2) % [place] % (Auto) (2.6-8.5) % Eos % (Auto) (0-4.4) % Baso % (Auto) (0.2-1.2) % Lymph # (Auto) (0.9-3.2) K/mm3 [place] # (Auto) (0.1-0.6) K/mm3 Eos # (Auto) (0-0.3) K/mm3 Baso # (Auto) (0.0-0.1) K/mm3 Abs Immat Gran (auto) (0.00-0.031) K/mm3 Absolute Neuts (auto) (1.3-6.7) K/mm3 Absolute Nucleated RBC (0.0-0.012) K/mm3 Nucleated RBC % (0.0-0.2) % Sodium Potassium Chloride 104 Carbon Dioxide Cancelled 24 Anion Gap Cancelled 12 BUN Cancelled Creatinine Estim Creat Clear Calc Estimated GFR Glucose Calcium Magnesium (1.6-2.3) mg/dL Total Bilirubin AST ALT Alkaline Phosphatase Total Protein Albumin Lipase Urine Color (Yellow) Urine Appearance (Clear) Urine pH (5.0-9.0) Ur Specific [place] (1.001-1.035) Urine Protein (Negative) mg/dL Urine Glucose (UA) (Negative) mg/dL Urine Ketones (Negative) mg/dL Ur Blood (Man) (Negative) Urine Nitrate (Negative) Urine Bilirubin (Negative) Urine Urobilinogen (<2.0) mg/dL Add Ur Microanalysis Leukocyte Esterase Rfl (Negative) YRN/UL Urine RBC (0-2) /hpf Urine WBC (0-3) /hpf Ur Squamous Epith Cells (Few) /hpf Urine Bacteria /hpf Urine Casts Urine Mucus /lpf POC Urine HCG, Qual (Negative) 08/12/24 08/12/24 08/12/24 Range/Units 13:09 13:09 13:09 WBC (4.5-10.0) K/mm3 RBC (4.2-5.4) M/mm3 Hgb (12.0-15.0) g/dL Hct (37.0-47.0) % MCV (80-100) fl MCH (26-34) pg MCHC (32-36) g/dl RDW (11.5-14.5) % Plt Count (150-375) k/mm3 MPV (7.4-10.4) fl Immature Gran % (Auto) (0-0.5) % Neut % (Auto) (45.5-73.1) % Lymph % (Auto) (18.3-44.2) % [place] % (Auto) (2.6-8.5) % Eos % (Auto) (0-4.4) % Baso % (Auto) (0.2-1.2) % Lymph # (Auto) (0.9-3.2) K/mm3 [place] # (Auto) (0.1-0.6) K/mm3 Eos # (Auto) (0-0.3) K/mm3 Baso # (Auto) (0.0-0.1) K/mm3 Abs Immat Gran (auto) (0.00-0.031) K/mm3 Absolute Neuts (auto) (1.3-6.7) K/mm3 Absolute Nucleated RBC (0.0-0.012) K/mm3 Nucleated RBC % (0.0-0.2) % Sodium Potassium Chloride Carbon Dioxide Anion Gap BUN 10 Creatinine Cancelled 0.60 L Estim Creat Clear Calc Cancelled 87 Estimated GFR Cancelled Glucose Calcium Magnesium (1.6-2.3) mg/dL Total Bilirubin AST ALT Alkaline Phosphatase Total Protein Albumin Lipase Urine Color (Yellow) Urine Appearance (Clear) Urine pH (5.0-9.0) Ur Specific [place] (1.001-1.035) Urine Protein (Negative) mg/dL Urine Glucose (UA) (Negative) mg/dL Urine Ketones (Negative) mg/dL Ur Blood (Man) (Negative) Urine Nitrate (Negative) Urine Bilirubin (Negative) Urine Urobilinogen (<2.0) mg/dL Add Ur Microanalysis Leukocyte Esterase Rfl (Negative) YRN/UL Urine RBC (0-2) /hpf Urine WBC (0-3) /hpf Ur Squamous Epith Cells (Few) /hpf Urine Bacteria /hpf Urine Casts Urine Mucus /lpf POC Urine HCG, Qual (Negative) 08/12/24 08/12/24 08/12/24 Range/Units 13:09 13:09 13:09 WBC (4.5-10.0) K/mm3 RBC (4.2-5.4) M/mm3 Hgb (12.0-15.0) g/dL Hct (37.0-47.0) % MCV (80-100) fl MCH (26-34) pg MCHC (32-36) g/dl RDW (11.5-14.5) % Plt Count (150-375) k/mm3 MPV (7.4-10.4) fl Immature Gran % (Auto) (0-0.5) % Neut % (Auto) (45.5-73.1) % Lymph % (Auto) (18.3-44.2) % [place] % (Auto) (2.6-8.5) % Eos % (Auto) (0-4.4) % Baso % (Auto) (0.2-1.2) % Lymph # (Auto) (0.9-3.2) K/mm3 [place] # (Auto) (0.1-0.6) K/mm3 Eos # (Auto) (0-0.3) K/mm3 Baso # (Auto) (0.0-0.1) K/mm3 Abs Immat Gran (auto) (0.00-0.031) K/mm3 Absolute Neuts (auto) (1.3-6.7) K/mm3 Absolute Nucleated RBC (0.0-0.012) K/mm3 Nucleated RBC % (0.0-0.2) % Sodium Potassium Chloride Carbon Dioxide Anion Gap BUN Creatinine Estim Creat Clear Calc Estimated GFR > 60 Glucose Cancelled 82 Calcium Cancelled 9.2 Magnesium 1.9 (1.6-2.3) mg/dL Total Bilirubin Cancelled AST ALT Alkaline Phosphatase Total Protein Albumin Lipase Urine Color (Yellow) Urine Appearance (Clear) Urine pH (5.0-9.0) Ur Specific [place] (1.001-1.035) Urine Protein (Negative) mg/dL Urine Glucose (UA) (Negative) mg/dL Urine Ketones (Negative) mg/dL Ur Blood (Man) (Negative) Urine Nitrate (Negative) Urine Bilirubin (Negative) Urine Urobilinogen (<2.0) mg/dL Add Ur Microanalysis Leukocyte Esterase Rfl (Negative) YRN/UL Urine RBC (0-2) /hpf Urine WBC (0-3) /hpf Ur Squamous Epith Cells (Few) /hpf Urine Bacteria /hpf Urine Casts Urine Mucus /lpf POC Urine HCG, Qual (Negative) 08/12/24 08/12/24 08/12/24 Range/Units 13:09 13:09 13:09 WBC (4.5-10.0) K/mm3 RBC (4.2-5.4) M/mm3 Hgb (12.0-15.0) g/dL Hct (37.0-47.0) % MCV (80-100) fl MCH (26-34) pg MCHC (32-36) g/dl RDW (11.5-14.5) % Plt Count (150-375) k/mm3 MPV (7.4-10.4) fl Immature Gran % (Auto) (0-0.5) % Neut % (Auto) (45.5-73.1) % Lymph % (Auto) (18.3-44.2) % [place] % (Auto) (2.6-8.5) % Eos % (Auto) (0-4.4) % Baso % (Auto) (0.2-1.2) % Lymph # (Auto) (0.9-3.2) K/mm3 [place] # (Auto) (0.1-0.6) K/mm3 Eos # (Auto) (0-0.3) K/mm3 Baso # (Auto) (0.0-0.1) K/mm3 Abs Immat Gran (auto) (0.00-0.031) K/mm3 Absolute Neuts (auto) (1.3-6.7) K/mm3 Absolute Nucleated RBC (0.0-0.012) K/mm3 Nucleated RBC % (0.0-0.2) % Sodium Potassium Chloride Carbon Dioxide Anion Gap BUN Creatinine Estim Creat Clear Calc Estimated GFR Glucose Calcium Magnesium (1.6-2.3) mg/dL Total Bilirubin 0.9 AST Cancelled 25 ALT Cancelled 11 Alkaline Phosphatase Cancelled Total Protein Albumin Lipase Urine Color (Yellow) Urine Appearance (Clear) Urine pH (5.0-9.0) Ur Specific [place] (1.001-1.035) Urine Protein (Negative) mg/dL Urine Glucose (UA) (Negative) mg/dL Urine Ketones (Negative) mg/dL Ur Blood (Man) (Negative) Urine Nitrate (Negative) Urine Bilirubin (Negative) Urine Urobilinogen (<2.0) mg/dL Add Ur Microanalysis Leukocyte Esterase Rfl (Negative) YRN/UL Urine RBC (0-2) /hpf Urine WBC (0-3) /hpf Ur Squamous Epith Cells (Few) /hpf Urine Bacteria /hpf Urine Casts Urine Mucus /lpf POC Urine HCG, Qual (Negative) 08/12/24 08/12/24 08/12/24 Range/Units 13:09 13:09 13:09 WBC (4.5-10.0) K/mm3 RBC (4.2-5.4) M/mm3 Hgb (12.0-15.0) g/dL Hct (37.0-47.0) % MCV (80-100) fl MCH (26-34) pg MCHC (32-36) g/dl RDW (11.5-14.5) % Plt Count (150-375) k/mm3 MPV (7.4-10.4) fl Immature Gran % (Auto) (0-0.5) % Neut % (Auto) (45.5-73.1) % Lymph % (Auto) (18.3-44.2) % [place] % (Auto) (2.6-8.5) % Eos % (Auto) (0-4.4) % Baso % (Auto) (0.2-1.2) % Lymph # (Auto) (0.9-3.2) K/mm3 [place] # (Auto) (0.1-0.6) K/mm3 Eos # (Auto) (0-0.3) K/mm3 Baso # (Auto) (0.0-0.1) K/mm3 Abs Immat Gran (auto) (0.00-0.031) K/mm3 Absolute Neuts (auto) (1.3-6.7) K/mm3 Absolute Nucleated RBC (0.0-0.012) K/mm3 Nucleated RBC % (0.0-0.2) % Sodium Potassium Chloride Carbon Dioxide Anion Gap BUN Creatinine Estim Creat Clear Calc Estimated GFR Glucose Calcium Magnesium (1.6-2.3) mg/dL Total Bilirubin AST ALT Alkaline Phosphatase 37 L Total Protein Cancelled 9.0 H Albumin Cancelled 5.2 H Lipase Cancelled Urine Color (Yellow) Urine Appearance (Clear) Urine pH (5.0-9.0) Ur Specific [place] (1.001-1.035) Urine Protein (Negative) mg/dL Urine Glucose (UA) (Negative) mg/dL Urine Ketones (Negative) mg/dL Ur Blood (Man) (Negative) Urine Nitrate (Negative) Urine Bilirubin (Negative) Urine Urobilinogen (<2.0) mg/dL Add Ur Microanalysis Leukocyte Esterase Rfl (Negative) YRN/UL Urine RBC (0-2) /hpf Urine WBC (0-3) /hpf Ur Squamous Epith Cells (Few) /hpf Urine Bacteria /hpf Urine Casts Urine Mucus /lpf POC Urine HCG, Qual (Negative) 08/12/24 08/12/24 08/12/24 Range/Units 13:09 13:57 13:58 WBC (4.5-10.0) K/mm3 RBC (4.2-5.4) M/mm3 Hgb (12.0-15.0) g/dL Hct (37.0-47.0) % MCV (80-100) fl MCH (26-34) pg MCHC (32-36) g/dl RDW (11.5-14.5) % Plt Count (150-375) k/mm3 MPV (7.4-10.4) fl Immature Gran % (Auto) (0-0.5) % Neut % (Auto) (45.5-73.1) % Lymph % (Auto) (18.3-44.2) % [place] % (Auto) (2.6-8.5) % Eos % (Auto) (0-4.4) % Baso % (Auto) (0.2-1.2) % Lymph # (Auto) (0.9-3.2) K/mm3 [place] # (Auto) (0.1-0.6) K/mm3 Eos # (Auto) (0-0.3) K/mm3 Baso # (Auto) (0.0-0.1) K/mm3 Abs Immat Gran (auto) (0.00-0.031) K/mm3 Absolute Neuts (auto) (1.3-6.7) K/mm3 Absolute Nucleated RBC (0.0-0.012) K/mm3 Nucleated RBC % (0.0-0.2) % Sodium Potassium Chloride Carbon Dioxide Anion Gap BUN Creatinine Estim Creat Clear Calc Estimated GFR Glucose Calcium Magnesium (1.6-2.3) mg/dL Total Bilirubin AST ALT Alkaline Phosphatase Total Protein Albumin Lipase 41 Urine Color Yellow (Yellow) Urine Appearance Cloudy H (Clear) Urine pH 6.0 (5.0-9.0) Ur Specific [place] 1.033 (1.001-1.035) Urine Protein 1+ H (Negative) mg/dL Urine Glucose (UA) Negative (Negative) mg/dL Urine Ketones 4+ H (Negative) mg/dL Ur Blood (Man) Negative (Negative) Urine Nitrate Negative (Negative) Urine Bilirubin Negative (Negative) Urine Urobilinogen 1.0 (<2.0) mg/dL Add Ur Microanalysis Reviewed Leukocyte Esterase Rfl Negative (Negative) YRN/UL Urine RBC 0-2 (0-2) /hpf Urine WBC 0-5 (0-3) /hpf Ur Squamous Epith Cells Occasional (Few) /hpf Urine Bacteria None seen /hpf Urine Casts 3-5 Urine Mucus Present /lpf POC Urine HCG, Qual Negative (Negative) <Nicol Borja PA-C - Last Filed: 08/12/24 13:20> Lab Results 08/12/24 08/12/24 08/12/24 Range/Units 13:09 13:09 13:09 WBC 4.9 (4.5-10.0) K/mm3 RBC 4.10 L (4.2-5.4) M/mm3 Hgb 12.5 (12.0-15.0) g/dL Hct 36.7 L (37.0-47.0) % MCV 89.5 (80-100) fl MCH 30.5 (26-34) pg MCHC 34.1 (32-36) g/dl RDW 12.4 (11.5-14.5) % Plt Count 237 (150-375) k/mm3 MPV 9.5 (7.4-10.4) fl Immature Gran % (Auto) 0.2 (0-0.5) % Neut % (Auto) 70.1 (45.5-73.1) % Lymph % (Auto) 22.8 (18.3-44.2) % [place] % (Auto) 5.3 (2.6-8.5) % Eos % (Auto) 0.8 (0-4.4) % Baso % (Auto) 0.8 (0.2-1.2) % Lymph # (Auto) 1.11 (0.9-3.2) K/mm3 [place] # (Auto) 0.3 (0.1-0.6) K/mm3 Eos # (Auto) 0.0 (0-0.3) K/mm3 Baso # (Auto) 0.0 (0.0-0.1) K/mm3 Abs Immat Gran (auto) 0.01 (0.00-0.031) K/mm3 Absolute Neuts (auto) 3.4 (1.3-6.7) K/mm3 Absolute Nucleated RBC 0.000 (0.0-0.012) K/mm3 Nucleated RBC % 0.0 (0.0-0.2) % Sodium Cancelled 140 Potassium Cancelled 3.6 Chloride Cancelled Carbon Dioxide Anion Gap BUN Creatinine Estim Creat Clear Calc Estimated GFR Glucose Calcium Magnesium (1.6-2.3) mg/dL Total Bilirubin AST ALT Alkaline Phosphatase Total Protein Albumin Lipase Urine Color (Yellow) Urine Appearance (Clear) Urine pH (5.0-9.0) Ur Specific [place] (1.001-1.035) Urine Protein (Negative) mg/dL Urine Glucose (UA) (Negative) mg/dL Urine Ketones (Negative) mg/dL Ur Blood (Man) (Negative) Urine Nitrate (Negative) Urine Bilirubin (Negative) Urine Urobilinogen (<2.0) mg/dL Add Ur Microanalysis Leukocyte Esterase Rfl (Negative) YRN/UL Urine RBC (0-2) /hpf Urine WBC (0-3) /hpf Ur Squamous Epith Cells (Few) /hpf Urine Bacteria /hpf Urine Casts Urine Mucus /lpf POC Urine HCG, Qual (Negative) 08/12/24 08/12/24 08/12/24 Range/Units 13:09 13:09 13:09 WBC (4.5-10.0) K/mm3 RBC (4.2-5.4) M/mm3 Hgb (12.0-15.0) g/dL Hct (37.0-47.0) % MCV (80-100) fl MCH (26-34) pg MCHC (32-36) g/dl RDW (11.5-14.5) % Plt Count (150-375) k/mm3 MPV (7.4-10.4) fl Immature Gran % (Auto) (0-0.5) % Neut % (Auto) (45.5-73.1) % Lymph % (Auto) (18.3-44.2) % [place] % (Auto) (2.6-8.5) % Eos % (Auto) (0-4.4) % Baso % (Auto) (0.2-1.2) % Lymph # (Auto) (0.9-3.2) K/mm3 [place] # (Auto) (0.1-0.6) K/mm3 Eos # (Auto) (0-0.3) K/mm3 Baso # (Auto) (0.0-0.1) K/mm3 Abs Immat Gran (auto) (0.00-0.031) K/mm3 Absolute Neuts (auto) (1.3-6.7) K/mm3 Absolute Nucleated RBC (0.0-0.012) K/mm3 Nucleated RBC % (0.0-0.2) % Sodium Potassium Chloride 104 Carbon Dioxide Cancelled 24 Anion Gap Cancelled 12 BUN Cancelled Creatinine Estim Creat Clear Calc Estimated GFR Glucose Calcium Magnesium (1.6-2.3) mg/dL Total Bilirubin AST ALT Alkaline Phosphatase Total Protein Albumin Lipase Urine Color (Yellow) Urine Appearance (Clear) Urine pH (5.0-9.0) Ur Specific [place] (1.001-1.035) Urine Protein (Negative) mg/dL Urine Glucose (UA) (Negative) mg/dL Urine Ketones (Negative) mg/dL Ur Blood (Man) (Negative) Urine Nitrate (Negative) Urine Bilirubin (Negative) Urine Urobilinogen (<2.0) mg/dL Add Ur Microanalysis Leukocyte Esterase Rfl (Negative) YRN/UL Urine RBC (0-2) /hpf Urine WBC (0-3) /hpf Ur Squamous Epith Cells (Few) /hpf Urine Bacteria /hpf Urine Casts Urine Mucus /lpf POC Urine HCG, Qual (Negative) 08/12/24 08/12/24 08/12/24 Range/Units 13:09 13:09 13:09 WBC (4.5-10.0) K/mm3 RBC (4.2-5.4) M/mm3 Hgb (12.0-15.0) g/dL Hct (37.0-47.0) % MCV (80-100) fl MCH (26-34) pg MCHC (32-36) g/dl RDW (11.5-14.5) % Plt Count (150-375) k/mm3 MPV (7.4-10.4) fl Immature Gran % (Auto) (0-0.5) % Neut % (Auto) (45.5-73.1) % Lymph % (Auto) (18.3-44.2) % [place] % (Auto) (2.6-8.5) % Eos % (Auto) (0-4.4) % Baso % (Auto) (0.2-1.2) % Lymph # (Auto) (0.9-3.2) K/mm3 [place] # (Auto) (0.1-0.6) K/mm3 Eos # (Auto) (0-0.3) K/mm3 Baso # (Auto) (0.0-0.1) K/mm3 Abs Immat Gran (auto) (0.00-0.031) K/mm3 Absolute Neuts (auto) (1.3-6.7) K/mm3 Absolute Nucleated RBC (0.0-0.012) K/mm3 Nucleated RBC % (0.0-0.2) % Sodium Potassium Chloride Carbon Dioxide Anion Gap BUN 10 Creatinine Cancelled 0.60 L Estim Creat Clear Calc Cancelled 87 Estimated GFR Cancelled Glucose Calcium Magnesium (1.6-2.3) mg/dL Total Bilirubin AST ALT Alkaline Phosphatase Total Protein Albumin Lipase Urine Color (Yellow) Urine Appearance (Clear) Urine pH (5.0-9.0) Ur Specific [place] (1.001-1.035) Urine Protein (Negative) mg/dL Urine Glucose (UA) (Negative) mg/dL Urine Ketones (Negative) mg/dL Ur Blood (Man) (Negative) Urine Nitrate (Negative) Urine Bilirubin (Negative) Urine Urobilinogen (<2.0) mg/dL Add Ur Microanalysis Leukocyte Esterase Rfl (Negative) YRN/UL Urine RBC (0-2) /hpf Urine WBC (0-3) /hpf Ur Squamous Epith Cells (Few) /hpf Urine Bacteria /hpf Urine Casts Urine Mucus /lpf POC Urine HCG, Qual (Negative) 08/12/24 08/12/24 08/12/24 Range/Units 13:09 13:09 13:09 WBC (4.5-10.0) K/mm3 RBC (4.2-5.4) M/mm3 Hgb (12.0-15.0) g/dL Hct (37.0-47.0) % MCV (80-100) fl MCH (26-34) pg MCHC (32-36) g/dl RDW (11.5-14.5) % Plt Count (150-375) k/mm3 MPV (7.4-10.4) fl Immature Gran % (Auto) (0-0.5) % Neut % (Auto) (45.5-73.1) % Lymph % (Auto) (18.3-44.2) % [place] % (Auto) (2.6-8.5) % Eos % (Auto) (0-4.4) % Baso % (Auto) (0.2-1.2) % Lymph # (Auto) (0.9-3.2) K/mm3 [place] # (Auto) (0.1-0.6) K/mm3 Eos # (Auto) (0-0.3) K/mm3 Baso # (Auto) (0.0-0.1) K/mm3 Abs Immat Gran (auto) (0.00-0.031) K/mm3 Absolute Neuts (auto) (1.3-6.7) K/mm3 Absolute Nucleated RBC (0.0-0.012) K/mm3 Nucleated RBC % (0.0-0.2) % Sodium Potassium Chloride Carbon Dioxide Anion Gap BUN Creatinine Estim Creat Clear Calc Estimated GFR > 60 Glucose Cancelled 82 Calcium Cancelled 9.2 Magnesium 1.9 (1.6-2.3) mg/dL Total Bilirubin Cancelled AST ALT Alkaline Phosphatase Total Protein Albumin Lipase Urine Color (Yellow) Urine Appearance (Clear) Urine pH (5.0-9.0) Ur Specific [place] (1.001-1.035) Urine Protein (Negative) mg/dL Urine Glucose (UA) (Negative) mg/dL Urine Ketones (Negative) mg/dL Ur Blood (Man) (Negative) Urine Nitrate (Negative) Urine Bilirubin (Negative) Urine Urobilinogen (<2.0) mg/dL Add Ur Microanalysis Leukocyte Esterase Rfl (Negative) YRN/UL Urine RBC (0-2) /hpf Urine WBC (0-3) /hpf Ur Squamous Epith Cells (Few) /hpf Urine Bacteria /hpf Urine Casts Urine Mucus /lpf POC Urine HCG, Qual (Negative) 08/12/24 08/12/24 08/12/24 Range/Units 13:09 13:09 13:09 WBC (4.5-10.0) K/mm3 RBC (4.2-5.4) M/mm3 Hgb (12.0-15.0) g/dL Hct (37.0-47.0) % MCV (80-100) fl MCH (26-34) pg MCHC (32-36) g/dl RDW (11.5-14.5) % Plt Count (150-375) k/mm3 MPV (7.4-10.4) fl Immature Gran % (Auto) (0-0.5) % Neut % (Auto) (45.5-73.1) % Lymph % (Auto) (18.3-44.2) % [place] % (Auto) (2.6-8.5) % Eos % (Auto) (0-4.4) % Baso % (Auto) (0.2-1.2) % Lymph # (Auto) (0.9-3.2) K/mm3 [place] # (Auto) (0.1-0.6) K/mm3 Eos # (Auto) (0-0.3) K/mm3 Baso # (Auto) (0.0-0.1) K/mm3 Abs Immat Gran (auto) (0.00-0.031) K/mm3 Absolute Neuts (auto) (1.3-6.7) K/mm3 Absolute Nucleated RBC (0.0-0.012) K/mm3 Nucleated RBC % (0.0-0.2) % Sodium Potassium Chloride Carbon Dioxide Anion Gap BUN Creatinine Estim Creat Clear Calc Estimated GFR Glucose Calcium Magnesium (1.6-2.3) mg/dL Total Bilirubin 0.9 AST Cancelled 25 ALT Cancelled 11 Alkaline Phosphatase Cancelled Total Protein Albumin Lipase Urine Color (Yellow) Urine Appearance (Clear) Urine pH (5.0-9.0) Ur Specific [place] (1.001-1.035) Urine Protein (Negative) mg/dL Urine Glucose (UA) (Negative) mg/dL Urine Ketones (Negative) mg/dL Ur Blood (Man) (Negative) Urine Nitrate (Negative) Urine Bilirubin (Negative) Urine Urobilinogen (<2.0) mg/dL Add Ur Microanalysis Leukocyte Esterase Rfl (Negative) YRN/UL Urine RBC (0-2) /hpf Urine WBC (0-3) /hpf Ur Squamous Epith Cells (Few) /hpf Urine Bacteria /hpf Urine Casts Urine Mucus /lpf POC Urine HCG, Qual (Negative) 08/12/24 08/12/24 08/12/24 Range/Units 13:09 13:09 13:09 WBC (4.5-10.0) K/mm3 RBC (4.2-5.4) M/mm3 Hgb (12.0-15.0) g/dL Hct (37.0-47.0) % MCV (80-100) fl MCH (26-34) pg MCHC (32-36) g/dl RDW (11.5-14.5) % Plt Count (150-375) k/mm3 MPV (7.4-10.4) fl Immature Gran % (Auto) (0-0.5) % Neut % (Auto) (45.5-73.1) % Lymph % (Auto) (18.3-44.2) % [place] % (Auto) (2.6-8.5) % Eos % (Auto) (0-4.4) % Baso % (Auto) (0.2-1.2) % Lymph # (Auto) (0.9-3.2) K/mm3 [place] # (Auto) (0.1-0.6) K/mm3 Eos # (Auto) (0-0.3) K/mm3 Baso # (Auto) (0.0-0.1) K/mm3 Abs Immat Gran (auto) (0.00-0.031) K/mm3 Absolute Neuts (auto) (1.3-6.7) K/mm3 Absolute Nucleated RBC (0.0-0.012) K/mm3 Nucleated RBC % (0.0-0.2) % Sodium Potassium Chloride Carbon Dioxide Anion Gap BUN Creatinine Estim Creat Clear Calc Estimated GFR Glucose Calcium Magnesium (1.6-2.3) mg/dL Total Bilirubin AST ALT Alkaline Phosphatase 37 L Total Protein Cancelled 9.0 H Albumin Cancelled 5.2 H Lipase Cancelled Urine Color (Yellow) Urine Appearance (Clear) Urine pH (5.0-9.0) Ur Specific [place] (1.001-1.035) Urine Protein (Negative) mg/dL Urine Glucose (UA) (Negative) mg/dL Urine Ketones (Negative) mg/dL Ur Blood (Man) (Negative) Urine Nitrate (Negative) Urine Bilirubin (Negative) Urine Urobilinogen (<2.0) mg/dL Add Ur Microanalysis Leukocyte Esterase Rfl (Negative) YRN/UL Urine RBC (0-2) /hpf Urine WBC (0-3) /hpf Ur Squamous Epith Cells (Few) /hpf Urine Bacteria /hpf Urine Casts Urine Mucus /lpf POC Urine HCG, Qual (Negative) 08/12/24 08/12/24 08/12/24 Range/Units 13:09 13:57 13:58 WBC (4.5-10.0) K/mm3 RBC (4.2-5.4) M/mm3 Hgb (12.0-15.0) g/dL Hct (37.0-47.0) % MCV (80-100) fl MCH (26-34) pg MCHC (32-36) g/dl RDW (11.5-14.5) % Plt Count (150-375) k/mm3 MPV (7.4-10.4) fl Immature Gran % (Auto) (0-0.5) % Neut % (Auto) (45.5-73.1) % Lymph % (Auto) (18.3-44.2) % [place] % (Auto) (2.6-8.5) % Eos % (Auto) (0-4.4) % Baso % (Auto) (0.2-1.2) % Lymph # (Auto) (0.9-3.2) K/mm3 [place] # (Auto) (0.1-0.6) K/mm3 Eos # (Auto) (0-0.3) K/mm3 Baso # (Auto) (0.0-0.1) K/mm3 Abs Immat Gran (auto) (0.00-0.031) K/mm3 Absolute Neuts (auto) (1.3-6.7) K/mm3 Absolute Nucleated RBC (0.0-0.012) K/mm3 Nucleated RBC % (0.0-0.2) % Sodium Potassium Chloride Carbon Dioxide Anion Gap BUN Creatinine Estim Creat Clear Calc Estimated GFR Glucose Calcium Magnesium (1.6-2.3) mg/dL Total Bilirubin AST ALT Alkaline Phosphatase Total Protein Albumin Lipase 41 Urine Color Yellow (Yellow) Urine Appearance Cloudy H (Clear) Urine pH 6.0 (5.0-9.0) Ur Specific [place] 1.033 (1.001-1.035) Urine Protein 1+ H (Negative) mg/dL Urine Glucose (UA) Negative (Negative) mg/dL Urine Ketones 4+ H (Negative) mg/dL Ur Blood (Man) Negative (Negative) Urine Nitrate Negative (Negative) Urine Bilirubin Negative (Negative) Urine Urobilinogen 1.0 (<2.0) mg/dL Add Ur Microanalysis Reviewed Leukocyte Esterase Rfl Negative (Negative) YRN/UL Urine RBC 0-2 (0-2) /hpf Urine WBC 0-5 (0-3) /hpf Ur Squamous Epith Cells Occasional (Few) /hpf Urine Bacteria None seen /hpf Urine Casts 3-5 Urine Mucus Present /lpf POC Urine HCG, Qual Negative (Negative) <Uday Chaidez MD - Last Filed: 08/12/24 18:14> Discharge Plan Discharge Clinical Impression: Cyclical vomiting with nausea <Nicol Borja PA-C - Last Filed: 08/12/24 13:20> Patient Disposition: Home, Self-Care <Nicol Borja PA-C - Last Filed: 08/12/24 13:20> Condition: Stable <Nicol Borja PA-C - Last Filed: 08/12/24 13:20> Instructions: Antibiotic Form, Clear Liquid Diet (ED), Acute Nausea and Vomiting (ED) <Nicol Borja PA-C - Last Filed: 08/12/24 13:20> Additional Instructions: Zofran and Reglan as needed for nausea control. Follow a clear liquid diet for the next 1-3 days. Have close follow-up with GI. I do recommend educating yourself on cannabinoid hyperemesis syndrome and refraining from THC. Have close follow-up with your primary care physician. If you have any worsening symptoms and please call or return to the emergency department. <Nicol Borja PA-C - Last Filed: 08/12/24 13:20> Prescriptions: New ondansetron 4 mg tablet,disintegrating 4 mg PO Q8H PRN (Reason: nausea and vomiting) Qty: 14 0RF metoclopramide HCl [Reglan] 10 mg tablet 10 mg PO Q6H PRN (Reason: nausea and vomiting) Qty: 14 0RF No Action Nexplanon 68 mg implant 1 implant SUBDERMAL ONCE Rx Instructions: as a single dose bupropion HCl 150 mg tablet extended release 24 hr 150 mg PO QAM Qty: 90 1RF famotidine 40 mg tablet 40 mg PO DAILY Qty: 90 1RF Rx Instructions: will alternate with Pantoprazole promethazine 25 mg suppository 25 mg RECTAL Q6H PRN (Reason: nausea and vomiting) Qty: 12 0RF ondansetron HCl 4 mg tablet 4 mg PO Q6H PRN (Reason: nausea and vomiting) Qty: 20 2RF guanfacine 2 mg tablet extended release 24 hr 2 mg PO DAILY Qty: 90 2RF Linzess 145 mcg capsule 145 mcg PO QAM Qty: 90 0RF escitalopram oxalate [Lexapro] 10 mg tablet 10 mg PO DAILY Qty: 90 1RF Hold Instructions: Order Change buspirone 15 mg tablet 15 mg PO BID Qty: 60 2RF Trulance 3 mg tablet 3 mg PO DAILY Qty: 90 3RF promethazine 12.5 mg tablet 12.5 mg PO Q6H PRN (Reason: nausea and vomiting) Qty: 30 0RF Rx Instructions: NEEDS APPOINTMENT FOR FURTHER REFILLS ondansetron 4 mg tablet,disintegrating See Rx Instructions .ROUTE .COMPLEX Qty: 30 0RF Dose Instruction: DISSOLVE 1 TABLET ON THE TONGUE EVERY 8 HOURS Rx Instructions: DISSOLVE 1 TABLET ON THE TONGUE EVERY 8 HOURS-NEEDS APPOINTMENT pantoprazole 40 mg tablet,delayed release (DR/EC) 40 mg PO HS Qty: 30 0RF Rx Instructions: NEEDS AN APPOINTMENT <Nicol Borja PA-C - Last Filed: 08/12/24 13:20> Follow-up/Referrals: Donte Velez MD [Primary Care Provider] - Imtiaz Francis MD [Physician] - <Nicol Borja PA-C - Last Filed: 08/12/24 13:20>
[2024-08-12 13:17] LABS: Basophils Percent Auto 0.8 % (0.2-1.2); Eosinophils Percent Auto 0.8 % (0-4.4); Hematocrit 36.7 % (37.0-47.0); Hemoglobin 12.5 g/dL (12.0-15.0); Immature Granulocyte Absolute 0.01 K/mm3 (0.00-0.031); Immature Granulocyte Percent A 0.2 % (0-0.5); Lymphocytes Absolute Auto 1.11 K/mm3 (0.9-3.2); Lymphocytes Percent Auto 22.8 % (18.3-44.2); Mean Corpuscular HGB Conc 34.1 g/dl (32-36); Mean Corpuscular Hemoglobin 30.5 pg (26-34); Mean Corpuscular Volume 89.5 fl (80-100); Mean Platelet Volume 9.5 fl (7.4-10.4); Monocytes Absolute Auto 0.3 K/mm3 (0.1-0.6); Monocytes Percent Auto 5.3 % (2.6-8.5); Neutrophils Absolute Auto 3.4 K/mm3 (1.3-6.7); Neutrophils Percent Auto 70.1 % (45.5-73.1); Platelet Count Result 237 k/mm3 (150-375); Red Cell Distribution Width 12.4 % (11.5-14.5); White Blood Count 4.9 K/mm3 (4.5-10.0)
[2024-08-12 13:26] LABS: Alanine Aminotransferase 11 U/L (6-35); Albumin Level 5.2 g/dL (3.5-5.1); Alkaline Phosphatase 37 U/L (38-126); Anion Gap 12 mmol/L (4-12); Aspartate Amino Transferase 25 U/L (14-36); Bilirubin,Total 0.9 mg/dL (0.2-1.3); Blood Urea Nitrogen 10 mg/dL (7-17); Calcium 9.2 mg/dL (8.4-10.2); Carbon Dioxide 24 mmol/L (22-30); Chloride 104 mmol/L (98-107); Estimated CRCL calculation 87 ml/min; Estimated Glomerular Filt Rate > 60; Glucose 82 mg/dL (65-110); Lipase 41 U/L (23-300); Magnesium 1.9 mg/dL (1.6-2.3); Potassium 3.6 mmol/L (3.4-5.0); Sodium 140 mmol/L (137-145)
[2024-08-12 13:58] LABS: BEDSIDEPREGUCG Negative (Negative)
[2024-08-12] MEDS: METOCLOPRAMIDE HCL INJ 10 MG/2 ML VIAL IV PUSH ×2 (14:03→16:19)
[2024-08-12] MEDS: SODIUM CHLORIDE 0.9% IV 1,000 ML 999 ML IV CONT ×2 (14:03→14:40)
[2024-08-12] MEDS: diphenhydrAMINE HCl INJ 50 MG/ML VIAL 25 MG IV PUSH (14:03)
[2024-08-12] MEDS: FAMOTIDINE 20 MG/2 ML VIAL IV PUSH (14:04)
[2024-08-12 14:09] VITALS: BP 113/77; PULSE 64; RESP 18; O2SAT 100
[2024-08-12 14:14] LABS: Add Urine Microscopic? YES; Appearance Urine Cloudy (Clear); Bacteria Urine None Seen /hpf; Bilirubin Urine Negative (Negative); Blood Urine Negative (Negative); Color Urine Yellow (Yellow); Glucose Urine UA Negative (Negative); Ketones Urine 4+ mg/dL (Negative); Leukocyte Esterase Ur Negative LEU/UL (Negative); Mucus Urine Present /lpf; Need Manual Microscopic Reviewed; Nitrate Urine Negative (Negative); Protein Urine 1+ mg/dL (Negative); RBC Urine 0-2 /hpf (0-2); Specific Grav Ur 1.033 (1.001-1.035); Squamous Epithelial Cell Urine Occasional /hpf (Few); WBC Urine 0-5 /hpf (0-3)
[2024-08-12 15:19] VITALS: BP 123/81; PULSE 55; RESP 17; O2SAT 100
[2024-08-12 16:21] VITALS: BP 113/73; PULSE 66; RESP 19; O2SAT 100
[2024-08-12] MEDS: HALOPERIDOL LACTATE 5 MG/ML VIAL IM (17:29)
[2024-08-12 18:24] VITALS: BP 112/63; PULSE 61; RESP 17; O2SAT 99
== END 2024-08-12 18:26 | disposition home or self-care (01) ==
PROVIDERS: Physician Assistant; Emergency Provider Emergency Medicine; PCP Family Medicine
DX: R11.15 Cyclical vomiting syndrome unrelated to migraine (principal); R11.0 Nausea; F12.90 Cannabis use, unspecified, uncomplicated; F17.200 Nicotine dependence, unspecified, uncomplicated
CPT/HCPCS: 36415; 74177; 80053; 81001; 81025; 83690; 83735; 85025; 96361; 96372; 96374; 96375; 96376; 99284; J1200; J1630; J2765; J7030; Q9967

== ENCOUNTER 2025-01-13 13:22 | Outpatient (CLI) | payer BC, SELFPAY ==
--- NOTE | ~2025-01-13 | US_ITS ---
EXAMINATION: US breast RT limited HISTORY: 19-year-old woman with a palpable abnormality within the lower inner right breast presents f or diagnostic ultrasound evaluation. High resolution limited right breast ultrasound was performed. COMPARISON: None FINDINGS: ULTRASOUND: Sonographic evaluation of the right breast within the area of palpable concern (at the 4:30 position approximately 5 cm from the nipple) demonstrates benign fibroglandular elements without a cystic or s olid lesion of concern. Deep to the breast tissue within the area of palpable concern is the border of a lower inner right ri b, possibly corresponding to patient's area of discomfort for which costochondritis is suspected. IMPRESSION: No sonographic evidence to suggest the presence of a breast malignancy. Findings (as detailed above) for which possible costochondritis suspected and for which clinical praveen elation is needed. BI-RADS Category 1: Negative Reviewed, dictated and finalized at location A. IMPRESSION: No sonographic evidence to suggest the presence of a breast malignancy. Findings (as detailed above) for which possible costochondritis suspected and f or which clinical correlation is needed. BI-RADS Category 1: Negative
--- OUTSIDE RECORDS SUMMARY | 2025-01-13 15:09 | XMS_ITS | Continuity of Care Document ---
Author Organization [facility] Address [address] [place] [address] Phone Care Team Providers Care Consumer Education Specialist Name Role Phone Axel Marion Unavailable Unavailable Procedures Procedure Date Office/outpatient Visit, New Advance Directives Directive Yes / No Effective Date File Name No Information Encounters Encounter Description Practice Location Reason(s) For Visit Diagnoses Date Provider Providers Copied on Encounter Office/outpat ient Visit, [facility], [address], [place], [place], [id number], [place] tel:[phone] [facility] No Information [address]. [address] , [address], [place], [address], [place]. tel:[phone] Referring Provider: Sharon Velez MD, [address] [place] [address], [address]. tel:[phone] Family History Family Member Type Diagnosis Age At Onset No Information Payers Payer name Insurance type Covered constitution party ID Authoriza tion(s) [place] [id number] Social History Type Description Quantity Date Captured Comments Sex Female Smoking Status No Information Chief Complaint And Reason For Visit No Information Reason For Referral Reason For Referral No Information History Of Present Illness Encounter Date Complaint History Of Prese nt Illness No Information Functional Status Date Functional Assessmen t No Information Instructions Date Instruction Additional Infor mation No Information Assessments Type Assessment Date No Information Patient Care Teams Name Effective Dates (start - stop) Status Members No Information
== END 2025-01-13 13:23 | disposition home or self-care (01) ==
LOC: ANHIMG 13:28
PROVIDERS: PCP Family Medicine; Visit Provider Nurse Practitioner Family
DX: N63.14 Unspecified lump in the right breast, lower inner quadrant (principal)
CPT/HCPCS: 76642